=== PATIENT | male | born 1950 | race Caucasian/White ===

== ENCOUNTER 2019-12-22 09:06 | Outpatient (RCR) | payer OTHER, SELFPAY ==
--- NOTE | 2019-12-22 10:10 | PTOPEVAL ---
Thank you for referring this patient to [facility]. Please review, sign, date and return this plan of care SONY. I agree with and certify that the following plan of care is medically necessary. Referring Physician Date Admitting Provider: Attending Provider: PHYSICIAN NOT ON STAFF Referring Provider: *PT Outpatient Evaluation Start: 12/22/19 09:07 Freq: Status: Active Protocol: Document 12/22/19 09:07 [facility]ARRIS (Rec: 12/22/19 09:48 HARRIS [email or web address]) Therapy Assessment Status Assessment Status Assessment Status Evaluation Evaluation Information Problem Diagnosis left pilon fracture Onset 10/11/19 Subjective Information Pt. reports that he fx his Query Text:As Reported By Patient/ right foot/ankle on 10/11/19 Family after falling from about 5' in the air. He was immediately taken to [facility] and underwent surgery that day. He was NWB until 12/11/19, which is when he was allowed to partial weight bear. He has been doing light walking. He reports his most recent doctors visit he was informed to WB as tolerated. He reports that he has been attempting light walking. He reports that his goal is to return to walking normally. Prior Level of Function Activity Level (Last 3 Months) Hand Dominance Right Activity of Daily Living Ability Independent Indoor/Home Mobility Independent Community Mobility Independent Stairs Ability Independent Functional Cognition (Planning, Shopping Independent , Taking Medications) Cooking Yes Cleaning Yes Laundry Yes Shopping Yes Driving Yes Pain Assessment Timing of Pain Assessment Timing of Pain Assessment Pre-Treatment Pain Scale Pain Scale Used Numeric (1 - 10) Self Report Pain Assessment Left Ankle(s) Reported Pain Level 0 Pain Frequency Intermittent Current Pain Intensity 0 Lowest Pain Intensity 0 Greatest Pain Intensity 2 Pain Aggravating Factors Walking,Weight Bearing/ Standing Pain Relief Interventions Used By Inactivity/Rest Patient Pain Score Pain Score
== END 2020-01-30 09:32 | disposition home or self-care (01) ==
LOC: CHSPT 09:06
PROVIDERS: PCP Family Medicine
DX: S82.872A Displaced pilon fracture of left tibia, initial encounter for closed fracture (principal)
CPT/HCPCS: 97016; 97110; 97140; 97161; 97530

== ENCOUNTER 2020-05-17 14:40 | Outpatient (RCR) | payer OTHER, SELFPAY ==
[2020-05-17 15:00] VITALS: BP 124/50; PULSE 61; PULSE 63; RESP 16; O2SAT 97; BMI 29.8
[2020-05-17 15:02] VITALS: BP 123/70; PULSE 67
== END 2020-08-11 14:51 | disposition home or self-care (01) ==
PROVIDERS: PCP Family Medicine; Visit Provider Specialist
DX: Z98.62 Peripheral vascular angioplasty status (principal)
CPT/HCPCS: 93798

== ENCOUNTER 2020-06-11 10:39 | Outpatient (CLI) | payer OTHER, SELFPAY ==
--- NOTE | ~2020-06-11 | XR_ITS ---
XR elbow LT 2V DATE: 06/11/2020 11:08 INDICATION: Left elbow pain TECHNIQUE: AP and lateral views . COMPARISON: None FINDINGS: There is mild spurring of the coronoid process of the proximal ulna. Minimal posterior spurring of the olecranon process, with adjacent small calcification or bony densit y. No fracture or dislocation or joint effusion. No periosteal reaction or bone destruction. IMPRESSION: Coronoid and olecranon process mild spurring Reviewed, dictated and finalized at location A.
== END 2020-06-11 10:40 | disposition home or self-care (01) ==
PROVIDERS: PCP Family Medicine; Visit Provider Family Medicine
DX: M25.422 Effusion, left elbow (principal)
CPT/HCPCS: 73070

== ENCOUNTER 2020-06-21 10:30 | Outpatient (CLI) | payer OTHER, SELFPAY ==
--- NOTE | ~2020-06-21 | US_ITS ---
EXAMINATION: US soft tissue UE LT DATE: 06/21/2020 11:15 INDICATION: Palpable area at the ulnar side of the proximal left forearm. TECHNIQUE: Multiple grayscale and Doppler ultrasound images of the abdomen were obtained. COMPARISON: None FINDINGS: At the region of concern there is a complex 4.2 x 3.6 x 0.6 cm loculated fluid collection with internal medicine physician assistant al isoechoic nodular soft tissue and thickened septations along which there is readily evident internal medicine physician assistant al vascular flow on color Doppler. IMPRESSION: 1. 4.2 x 3.6 x 0.6 cm complex cystic collection with solid vascular soft tissue components at the uln ar side of the proximal left forearm. Differential would include abscess, bursitis or neoplasm which could be either benign or malignant. Correlate clinically for signs/symptoms of inflammation and coul d consider ultrasound-guided aspiration/biopsy as clinically indicated. Reviewed, dictated and finalized at location A. IMPRESSION: 1. 4.2 x 3.6 x 0.6 cm complex cystic collection with solid vascular soft tissue components at the ulnar side of the proximal left forearm. Differential would include abscess, bursitis or neoplasm which could be either benign or malignant . Correlate clinically for signs/symptoms of inflammation and could consider ul trasound-guided aspiration/biopsy as clinically indicated.
== END 2020-06-21 10:31 | disposition home or self-care (01) ==
LOC: CHSLAB 10:33
PROVIDERS: PCP Family Medicine; Visit Provider Family Medicine
DX: R22.32 Localized swelling, mass and lump, left upper limb (principal)
CPT/HCPCS: 76882

== ENCOUNTER 2020-06-30 13:20 | Outpatient (CLI) | payer OTHER, SELFPAY ==
--- NOTE | ~2020-06-30 | US_ITS ---
EXAMINATION: US_ABSCYSTIMG_US DATE: 06/30/2020 14:29 INDICATION: Left forearm mass TECHNIQUE: The procedure and its risks and benefits were discussed with the patient. Potential risks discussed included bleeding and infection. The skin was prepped and draped in sterile fashion. 1% lid ocaine was used for local anesthesia. Under ultrasound guidance, a 21-gauge needle was advanced into the anechoic portion of the complex fluid collection. 4 mm of dark red-colored fluid was aspirated. T he needle was removed, and a dressing was applied. There were no immediate complications. FINDINGS: Ultrasound images demonstrate needle within the previous noted complex fluid collection at the ulnar side of the proximal left forearm. IMPRESSION: 1. Successful ultrasound-guided paracentesis yielding 4 mL of dark maroon-colored fluid ingesting a chronic hematoma. Patient provided additional clinical information that the mass developed following injury with bruising and at the patient has been anticoagulated for cardiac stent placement. Both the ultrasound appearance, the provided clinical history as well as appearance of the aspirated fluid ar e all most consistent with a hematoma. Aspirated fluid was sent for cytology, Gram stain and cultures and crystal analysis. Reviewed, dictated and finalized at location A. IMPRESSION: 1. Successful ultrasound-guided paracentesis yielding 4 mL of dark maroon-colo red fluid ingesting a chronic hematoma. Patient provided additional clinical in formation that the mass developed following injury with bruising and at the pat ient has been anticoagulated for cardiac stent placement. Both the ultrasound a ppearance, the provided clinical history as well as appearance of the aspirated fluid are all most consistent with a hematoma. Aspirated fluid was sent for cy tology, Gram stain and cultures and crystal analysis.
[2020-06-30 15:26] LABS: Crystals Synovial Fluid None Seen (None Seen)
== END 2020-06-30 13:21 | disposition home or self-care (01) ==
PROVIDERS: Radiology Diagnostic Radiology; PCP Family Medicine
DX: R22.32 Localized swelling, mass and lump, left upper limb (principal)
CPT/HCPCS: 10160; 76942; 87070; 87075; 87205; 88104; 88108; 88184; 88305; 89060

== ENCOUNTER 2021-05-13 07:48 | Outpatient (RCR) | payer OTHER, SELFPAY ==
--- NOTE | 2021-05-13 13:17 | PTOPEVAL ---
Thank you for referring Diogenes Mcelroy to [facility].? The patient is scheduled to be seen for therapy? ____x/week for ___ weeks. Please review, sign, date and return this plan of care SONY. I agree with and certify that the following plan of care is medically necessary. Referring Physician Date Admitting Provider: Attending Provider: ALINE GONZALES Referring Provider: HARSHAD Outpatient Evaluation Start: 05/13/21 08:02 Freq: Status: Active Protocol: Document 05/13/21 08:00 [facility] (Rec: 05/13/21 09:55 [facility] [id number]) Evaluation Information Problem Diagnosis L total ankle replacement Onset 05/12/21 Subjective Information Diogenes Mcelroy is a 70 year Query Text:As Reported By Patient/ old male who had a L TAR on . Patient reports that he has peripheral neuropathy in bilateral feet. He reports numbness in both feet but no pain. He report no falls in past year. He experienced a traumatic medial fracture last year. Prior Level of Function Comments Additional Prior Level of Function go for walks, perform yard Comments work and house hold tasks Pain Assessment Timing of Pain Assessment Timing of Pain Assessment Pre-Treatment Pain Scale Pain Scale Used Numeric (1 - 10) Self Report Pain Assessment Left Ankle(s) Reported Pain Level 0 Lowest Pain Intensity 0 Greatest Pain Intensity 2 Pain Score Pain Score 0: Self Report Interventions Used Interventions Used By Clinicians Activity or ADL's,Education, Exercise Lower Extremity Range of Motion Ankle/Foot Range of Motion Right Ankle Dorsiflexion With Knee Extension 10 Range of Motion - Active Ankle Dorsiflexion With Knee Extension 15 Range of Motion - Passive Ankle Dorsiflexion With Knee Flexed 10 Range of Motion - Active Ankle Dorsiflexion With Knee Flexed 15 Range of Motion - Passive Ankle Plantarflexion Range of Motion - 43 Active Query Text: Ankle Plantarflexion Range of Motion - 45 Passive Ankle Eversion Range of Motion - Active 20 Ankle Inversion Range of Motion - Active 10 Left Ankle Dorsiflexion With Knee Extension -3 Range of Motion - Active Ankle Dorsiflexion With Knee Extension 0 Range of Motion - Passive Ankle Dorsiflexion With Knee Flexed 3 Range of Motion - Active Ankle Dorsiflexion With Knee Flexed 5 Range of Motion - Passive Ankle Plantarflexion Range of Mc
--- NOTE | 2021-06-20 09:51 | PTOPEVAL ---
Thank you for referring Diogenes Mcelroy to [facility].? The patient is scheduled to be seen for therapy? ____x/week for ___ weeks. Please review, sign, date and return this plan of care SONY. I agree with and certify that the following plan of care is medically necessary. 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 He states that he is able to do anything that he needs to do and occasionally has some tightness by the end of the day. Pain Assessment Timing of Pain Assessment Timing of Pain Assessment Assessment Pain Scale Pain Scale Used Numeric (1 - 10) Self Report Pain Assessment Left Ankle(s) Reported Pain Level 0 Greatest Pain Intensity 3 Pain Score Pain Score 0: Self Report Interventions Used Interventions Used By Clinicians Activity or ADL's,Exercise Lower Extremity Range of Motion Ankle/Foot Range of Motion Left Ankle Dorsiflexion With Knee Extension 5 Range of Motion - Active Ankle Plantarflexion Range of Motion - 21 Active Query Text: Ankle Eversion Range of Motion - Active 20 Ankle Inversion Range of Motion - Active 20 Lower Extremity Muscle Strength Testing Ankle Strength Left Ankle Dorsiflexion Strength 5 Normal Ankle Plantarflexion Strength 5 Normal Ankle Eversion Strength 5 Normal Ankle Inversion Strength 5 Normal Extremity Circumference Assessment Circumference Assessment Circumference Comments Malleolar line: L- 29.5 cm R- 27 cm General Exercise General Exercises Exercise Description - reeval x 10 minutes Query Text:Record Sets, Reps, - box lifts with 27.5 # x 10 Resistance, and Position - tall kneeling to half kneeling to standing with no UE support x 5 - nustep 10 minutes level 6 - slantboard 3 minutes - heel and toe raises x20 each
== END 2021-06-20 10:20 | disposition home or self-care (01) ==
LOC: CHSPT 07:48
PROVIDERS: PCP Family Medicine
DX: M19.072 Primary osteoarthritis, left ankle and foot (principal)
CPT/HCPCS: 97016; 97110; 97161; 97530

== ENCOUNTER 2022-05-03 07:12 | Outpatient (CLI) | payer OTHER, SELFPAY ==
--- NOTE | ~2022-05-03 | US_ITS ---
EXAMINATION: US right upper quadrant DATE: 05/03/2022 08:27 INDICATION: Elevated bilirubin TECHNIQUE: Multiple grayscale and Doppler ultrasound images of the abdomen were obtained. COMPARISON: None available FINDINGS: The head and body of the pancreas are normal. The pancreatic tail is obscured by bowel gas. The liver is normal with normal echogenicity and echotexture. No surface nodularity. Normal hepatope rama flow in the main portal vein. The gallbladder is normal with no abnormal wall thickening, pericho lecystic fluid or stones. The normal common bile duct measures 4 mm. There was no sonographic Edwards sign. IMPRESSION: 1. No sonographic correlate for the patient's symptoms. Reviewed, dictated and finalized at location A.
== END 2022-05-03 07:13 | disposition home or self-care (01) ==
LOC: CHSIMG 07:13
PROVIDERS: PCP Family Medicine; Visit Provider Family Medicine
DX: R17 Unspecified jaundice (principal)
CPT/HCPCS: 76705

== ENCOUNTER 2024-11-20 14:13 | Outpatient (CLI) | payer MEDICARE, SELFPAY ==
[2024-11-20 15:03] LABS: INR 1.1; Prothrombin Time 12.4 Seconds (9.50-12.1)
[2024-11-20 15:32] LABS: Alanine Aminotransferase 35 U/L (16-63); Albumin Level 4.1 g/dL (3.4-5.0); Alkaline Phosphatase 73 U/L (46-116); Aspartate Amino Transferase 21 U/L (15-37); Bilirubin Direct 0.3 mg/dL (0-0.2); Bilirubin Indirect 1.8 mg/dL (0-1.0); Bilirubin,Total 2.1 mg/dL (0.00-1.00); Ferritin 90 ng/mL (26-388); Iron 78 ug/dL (65-175); Percent Iron Saturation 27 % (12-57); Total Protein 6.5 g/dL (6.4-8.2)
[2024-11-21 08:58] LABS: Hepatitis A Antibody IgM NON-REACTIVE (NON-REACTIVE); Hepatitis B Core Antibody NON-REACTIVE (NON-REACTIVE); Hepatitis B Surface Antigen NON-REACTIVE (NON-REACTIVE); Hepatitis C Virus Antibody NON-REACTIVE (NON-REACTIVE)
[2024-11-22 07:05] LABS: Alpha-1-Antitrypsin, QN 136 mg/dL (83-199); Ceruloplasmin 20 mg/dL (14-30); Immunoglobulin G 1111 mg/dL (600-1540)
== END 2024-11-20 14:14 | disposition home or self-care (01) ==
LOC: CHSLAB 14:14
PROVIDERS: PCP Family Medicine; Visit Provider Nurse Practitioner
DX: K74.60 Unspecified cirrhosis of liver (principal); E80.6 Other disorders of bilirubin metabolism
CPT/HCPCS: 36415; 80074; 80076; 82103; 82390; 82728; 82784; 83516; 83520; 83540; 83550; 85610; 86038; 86376

== ENCOUNTER 2025-01-11 09:31 | Outpatient (CLI) | payer MEDICARE, SELFPAY ==
--- NOTE | ~2025-01-11 | MR_ITS ---
MRI of the abdomen: Clinical indication: Left renal mass. Technique: Coronal SSFSE ARC, WATER:coronal LAVA-FLEX, Coronal 2D FIESTA FatSat, Axial SSFSE BH ARC, Axial 3D DualEcho BH, Axial SSFSE-IR, Axial DWI b=500, Axial 2D FIESTA FatSat, pre and dynamic postco ntrast Axial LAVA ARC, postcontrast Coronal In and Opposed phase LAVA FLEX. Following intravenous adm inistration of 20 cc ProHance gadolinium, T1-weighted fat-sat imaging was performed in the axial and coronal planes. Correlation made with CT scan dated 11/24/2024 Findings: Gallbladder unremarkable. The common bile duct is normal in course and caliber. No filling defects are seen within the CBD. No evidence of intrahepatic biliary ductal dilatation. The pancreati c duct is normal in size. There is a mildly complex left renal cyst measuring 3.6 cm in diameter, with crescentic peripheral ar ea which is T1 hyperintense and T2 hypointense, without apparent postcontrast enhancement. This is mo st compatible with a hemorrhagic cyst. Multiple additional bilateral simple renal cysts are present. No suspicious renal mass identified. Liver, spleen, pancreas, and adrenal glands appear normal. The aorta and the paraaortic regions appea r normal. Impression: 3.6 cm partially hemorrhagic left renal cyst. Additional bilateral simple renal cysts. No suspicious renal mass. Reviewed, dictated and finalized at [facility]. Impression: 3.6 cm partially hemorrhagic left renal cyst. Additional bilateral simple renal cysts. No suspicious renal mass.
--- OUTSIDE RECORDS SUMMARY | 2025-01-11 09:35 | XMS_ITS | Encounter Summary ---
Author Organization [facility] Address [facility] [place] [address] Care Team Providers Care Plate Cleaner Name Role Phone Ayse Vera APRN, NP-C Unavailable [phone] Dylan Miguel MD Unavailable [phone] Mrak Segura MD Primary Care Provider [phone] Faustino Miranda MD Unavailable Unavailabl e Soraya Bahena MD Unavailable [phone] Encounter Details Date Type Department Care Team (Late st Contact Info) Description 12/12/2020 [place] Message Enc [facility] [address] [place] [phone] Faustino Miranda MD Medication Questions Social History Tobacco Use Types Packs/Day Years Used Date Smoking Tobacco: Former Cigarettes Q uit: 2009 Smokeless Tobacco: Former Alcohol Use Standard Drinks/Week Comments No 0 (1 standard drink = 0.6 oz pur e alcohol) AUDIT-C Answer Date Recorded Frequency of Alcohol Consumption Never 10/16/2019 Average Number of Drinks Not on file 019 Frequency of Binge Drinking Not on file 10/05 Sex and Gender Information Value Date Recorded Sex Assigned at Not on file Legal Sex Male 11:21 PM SALES SERVICE PROFESSIONAL Gender Identity Not on file Sexual Orientation Not on file 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 Answer Date of Assessment Author Status No 10/12/2019 12:36 AM SALES SERVICE PROFESSIONAL Acti ve * Do you have serious difficulty walking or climbing stairs? Answer Date of Assessment Author Status No 10/12/2019 12:36 AM SALES SERVICE PROFESSIONAL Hector Camp RN Active * Do you have difficulty dressing or bathing? Answer Date of Assessment Author Status No 10/12/2019 12:36 AM SALES SERVICE PROFESSIONAL Hector Camp RN Active * Because of a physical, mental, or emotional condition, do you have difficulty doing errands alone such as visiting a doctor's office or shopping? Answer Date of Assessment Author Status No 10/12/2019 12:36 AM Hector Santiago RN Active documented as of this encounter Mental Status * Because of a physical, mental, or emotional condition, do you have serious difficulty concentrating, remembering, or making decisions? Answer Entry Date Author Status No 10/12/2019 12:36 AM Hector Santiago RN Active documented in this encounter Progress Notes * Ayse Vera APRN, MIC - 12/13/2020 8:34 AM CST Returned call to Diogenes. Informed him that he may restart Plavix the day following the procedure, provided that the surgeon agrees based on his bleeding risk. I encouraged him to check with the surgeon afterwards. He v/u. S SERVICE PROFESSIONAL documented in this encounter Plan of Treatment Upcoming Encounters Date Type Department Care Team (Late st Contact Info) Description 03/20/2025 10:30 AM CDT Office Visit [facility] el[facility] [address] [place] [address] Ayse Vera APRN, CHIP MACHINE OPERATOR-C [address] [facility] [address] [place] [phone] documented as of this encounter Visit Diagnoses Not on filedocumented in this encounter Care Teams Plate Cleaner Relationship Specialty Start Date End Date Mark Segura MD [address] [place] [address] PCP - General FAMILY PRACTICE 10/22/19 Ayse eVra, SURAJ, CHIP MACHINE OPERATOR-C [address] [place] [address] [address] [place] [phone] NURSE PRACTITIONER 10/17/19 Dylan Migule MD [address] [place] [address] ORTHOPAEDIC SURGERY 10/17/19 Faustino Miranda MD [address] [place] [address] Consulting Physician CARDIOVASCULAR DISEASE 08/16/20 Soraya Bahena MD [address] [place] [address] INTERVENTIONAL CARDIOLOGY 04/04/24 documented as of this encounter
--- OUTSIDE RECORDS SUMMARY | 2025-01-11 09:35 | XMS_ITS | Encounter Summary ---
Author Organization [facility] Address [facility] [place] [address] Care Team Providers Care District Medical Examiner Name Role Phone Ayse Vera APRN, NP-C Unavailable [phone] Dylan Miguel MD Unavailable [phone] Mark Segura MD Primary Care Provider [phone] Faustino Miranda MD Unavailable Unavailabl e Soraya Bahena MD Unavailable [phone] Encounter Details Date Type Department Care Team (Late st Contact Info) Description 04/18/2024 Voltage Security Message Enc [facility] eld [address] [place] [address] Ayse Vera APRN HIGH SCHOOL SOCIAL SCIENCE TEACHERAnhC [address] [facility] [address] [place] [address] Blood test Social History Tobacco Use Types Packs/Day Years [...] on file Legal Sex Male 11:21 PM HEADER OPERATOR Gender Identity Not on file Sexual Orientation Not on file 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 Answer Date of Assessment Author Status No 10/12/2019 12:36 AM HEADER OPERATOR Acti ve * Do you have serious difficulty walking or climbing stairs? Answer Date of Assessment Author Status No 10/12/2019 12:36 AM Hector Santiago RN Active * Do you have difficulty dressing or bathing? Answer Date of Assessment Author Status No 10/12/2019 12:36 AM Hector Santiago RN Active * Because of a physical, [...] Santiago RN Active documented in this encounter Plan of Treatment Upcoming Encounters Date Type Department Care Team (Late st Contact Info) Description 03/20/2025 10:30 AM CDT Office Visit [facility] [address] [place] [phone] Ayse Vera APRN, HIGH SCHOOL SOCIAL SCIENCE TEACHER-C [address] [facility] [address] [place] [address] documented as of this encounter Visit Diagnoses Not on filedocumented in this encounter Care Teams District Medical Examiner Relationship Specialty Start Date End Date Mark Segura MD [address] [place] [address] PCP - General FAMILY PRACTICE 10/22/19 Ayse Vera APRN, HIGH SCHOOL SOCIAL SCIENCE TEACHER-C [address] [facility] [address] [place] [address] NURSE PRACTITIONER 10/17/19 Dylan Miguel MD [address] [place] [address] ORTHOPAEDIC SURGERY 10/17/19 Faustino Miranda MD [address] [place] [address] Consulting Physician CARDIOVASCULAR DISEASE 08/16/20 Soraya Bahena MD [address] [place] [address] INTERVENTIONAL CARDIOLOGY 04/04/24 documented as of this encounter
--- OUTSIDE RECORDS SUMMARY | 2025-01-11 09:35 | XMS_ITS | Clinical Summary ---
Author Organization [facility] Address [address] [place] [address] Care Team Providers Care Life Trainer Name Role Phone Ayse Vera APRN, NP-C Unavailable Dylan Miguel MD Unavailable [phone] Mark Segura MD Primary Care Provider [phone] Faustino Mrianda MD Unavailable Unavailabl Soraya Headley MD Unavailable [phone] Allergies Active Allergy Reactions Criticality Noted Date Comments Oxycodone GI Upset 10/11/2019 Medications lisinopril-hydr ochlorothiazide 20-25 MG tabletIndicatio ns:blood pressure/water pill Take 2 tablets by mouth daily. Indications: blood pressure/water pill 1 9 Active Multiple Vitamins-Minera ls (MULTIVITAMIN ADULTS) TabIndications: supplement Take 1 tablet by mouth daily. Indications: supplement Active GLUCOSAMINE-CHO NDROITIN 4075-7107 MG OR TABSIndications :supplement Take 1 tablet by mouth daily. Indications: supplement Active tamsulosin 0.4 MG Cap Take 1 capsule (0.4 mg total) by mouth daily. Active aspirin EC (ECOTRIN) 81 MG tablet Take 1 tablet (81 mg total) by mouth daily. Active metoprolol succinate ER (TOPROL-XL) 50 MG 24 hr tablet Take 1 tablet (50 mg total) by mouth daily. 90 tablet 3 4 Active apixaban (ELIQUIS) 5 MG tablet Take 1 tablet (5 mg total) by mouth 2 (two) times daily. 180 tablet 3 4 Active rosuvastatin (CRESTOR) 5 MG tablet TAKE 1 TABLET BY MOUTH NIGHTLY AT BEDTIME 90 tablet 4 Active Active Problems Problem Noted Date Diagnosed Date Hyperlipidemia 04/29/2020 Paroxysmal atrial fibrillation (CMS/HCC HHS/HCC) 04/29/2020 S/P coronary artery stent placement 04/21/2020 Hypertension 10/17/2019 Right bundle branch block 10/17/2019 Dislocation of ankle, open 10/11/2019 Coronary artery disease Encounters Date Type Department Care Team Description 10/28/2024 [facility] [address] [place] [address] Abstract, Doc Pre[facility] from Last 3 Months Immunizations Name Administration Dates Next Due Afluria 36 MONTHS+ (Prefilled Syringe IIV4) 06/2019 Tdap (Boostrix) 10/11/2019 Family History Medical History Relation Comments Alzheimers Father COPD Father Coronary artery disease Father Stents Afib Mother Relation Status Comments Brother 1 Alive Brother 2 Alive Father Mother Sister Alive Social History Tobacco Use Types Packs/Day Years Used Date Smoking Tobacco: Former Cigarettes Q uit: 2008 Smokeless Tobacco: Former Alcohol Use Standard Drinks/Week Comments No 0 (1 standard drink = 0.6 oz pur e alcohol) AUDIT-C Answer Date Recorded Frequency of Alcohol Consumption Never 10/16/2019 Average Number of Drinks Not on file 019 Frequency of Binge Drinking Not on file 10/05 Sex and Gender Information Value Date Recorded Sex Assigned at Not on file 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 Gender Identity Not on file Sexual Orientation Not on file 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 Not on file Last Filed Vital Signs Vital Sign Reading Time Taken Comments Blood Pressure 112/70 03/20/2024 11:02 AM CDT Pulse 68 03/20/2024 11:02 AM CDT Temperature 36.1 C (96.9 F) 04/29/2020 2:28 PM CDT Respiratory Rate 16 03/20/2024 11:02 AM CDT Oxygen Saturation 96% 03/20/2024 11:02 AM CDT Inhaled Oxygen Concentration - - Weight 106.1 kg (234 lb) 03/20/2024 11:02 AM CDT Height 180.3 cm (5' 11 ) 03/20/2024 11:02 AM CDT Body Mass Index 32.64 03/20/2024 11:02 AM CDT Plan of Treatment Upcoming Encounters Date Type Department Care Team (Late st Contact Info) Description 03/20/2025 10:30 AM CDT Office Visit [facility]d [address] [place] [address] Ayse Vera, AUTO WINDER, ADULT SPECIALIST-C [address] [facility] [address] [place] [address] Health Maintenance Due Date Last Done Comments Colorectal Cancer Screening Colonoscopy (10 Years) 1950 Pneumococcal Vaccine: 65+ Years (1 of 2 - PCV) 1957 Hepatitis C 1969 RSV Immunization or 60+ Years (1 - Risk 60-74 years 1-dose series) 2011 AAA SCREENING 2016 Annual Medicare Wellness Visit 2016 Zoster Vaccines (2 of 3) 10/26/2017 08/31/2017 COVID-19 Vaccine ( - 2023-2 5 season) 2024 Influenza Adult (#1) 2024 10/12/2019, 12/10/2018 DTaP, Tdap and Td Vaccines ( 2 - Td or Tdap) 10/11/2029 10/11/2019 Meningococcal B Vaccine Aged Out No l onger eligible based on patient's age to complete this topic Meningococcal Vaccine Aged Out No osiris tavia eligible based on patient's age to complete this topic RSV Immunizations Under 20 Months Aged Out No longer eligible b ased on patient's age to complete this topic Medical Devices Implanted Type Area Assistant Head Cashier Device Identifier Shelf Expiration Date Model / Serial / Lot Cv Xience Lakeisha Americo Mid Lad Stent Stent Coronary LAD GUTIERREZ VASCULAR 12/25/2020 [id number] / / [id number] Clamp Synthes Large Pin 4 Position - [id number] Implanted:Qty: 1 on 10/11/2019 by Dion Prado MD at [facility] Left: Ankle SYNTHES 390.009 / / Screw Schanz Synthes 4.0 X 125 - [id number] Implanted:Qty: 1 on 10/11/2019 by Dion Prado MD at [facility] Left: Ankle SYNTHES 294.777 / / Screw Schanz Synthes 5 X 175mm - [id number] Implanted:Qty: 2 on 10/11/2019 by Dion Prado MD at [facility] Left: Ankle SYNTHES 294.785 / / Pin Transfixation Synthes 6.0 X 225mm - [id number] Implanted:Qty: 1 on 10/11/2019 by Dion Prado MD at [facility] Left: Ankle SYNTHES 294.95 / / Clamp Synthes Large Combination - [id number] Implanted:Qty: 6 on 10/11/2019 by Dion Prado MD at [facility] Left: Ankle SYNTHES 390.005 / / Post Synthes 11mm 30 Deg Outrigger Mr Safe - [id number] Implanted:Qty: 2 on 10/11/2019 by Dion Prado MD at [facility] Left: Ankle SYNTHES 390.012 / / Tristan Synthes 11.0 Carbon Fiber 400mm - [id number] Implanted:Qty: 2 on 10/11/2019 by Dion Prado MD at [facility] Left: Ankle SYNTHES 394.87 / / Tristan Synthes 11.0 Carbon Fiber 150mm - [id number] Implanted:Qty: 1 on 10/11/2019 by Dion Prado MD at [facility] Left: Ankle SYNTHES 394.82 / / Tsering 8 Hole Plate Implanted:Qty: 1 on 10/27/2019 by Dylan Miguel MD at [facility] Left: Ankle [employer] 4927-008-03 / / Screw Tsering 2.7 Cortical Self Tapping 30mm - [id number] Implanted:Qty: 1 on 10/27/2019 by Dylan Miguel MD at [facility] Left: Ankle BIOMET INC [id number] / / Screw Tsering 2.7 Cortical Self Tapping 40mm - [id number] Implanted:Qty: 1 on 10/27/2019 by Dylan Miguel MD at [facility] Left: Ankle BIOMET INC [id number] / / Screw Tsering 2.7 Cortical Self Tapping 42mm - [id number] Implanted:Qty: 1 on 10/27/2019 by Dylan Miguel MD at [facility] Left: Ankle BI[employer]ET INC [id number] / / Screw Tsering 2.7 Cortical Self Tapping 44mm - [id number] Implanted:Qty: 1 on 10/27/2019 by Dylan Miguel MD at [facility] Left: Ankle BIOMET INC [id number] / / Screw Tsering 2.7 Cortical Self Tapping 28mm - [id number] Implanted:Qty: 1 on 10/27/2019 by Dlyan Miguel MD at [facility] Left: Ankle BIOMET INC [id number] / / Tsering 1/3 Tubular Plate 10 Hole Implanted:Qty: 1 on 10/27/2019 by Dylan Miguel MD at [facility] Left: Ankle [employer] [id number] / / Screw Cortical Tsering 3.5 X 16mm - [id number] Implanted:Qty: 4 on 10/27/2019 by Dylan Miguel MD at [facility] Left: Ankle BI[employer]ET INC [id number] / / Screw Cortical Tsering 3.5 X 55mm - [id number] Implanted:Qty: 1 on 10/27/2019 by Dylan Miguel MD at [facility] Left: Ankle BI[employer]ET [employer] [id number] / / Tsering 3.5 X 60 Mm Cortical Screw Implanted:Qty: 1 on 10/27/2019 by Dylan Miguel MD at [facility] Left: Ankle [employer] [id number] / / Screw Cortical Tsering 3.5 X 18mm - [id number] Implanted:Qty: 1 on 10/27/2019 by Dylan Miguel MD at [facility] Left: Ankle BIOMET INC [id number] / / Explanted Type Area Assistant Head Cashier Device Identifier Shelf Expiration Date Model / Serial / Lot Drill Bit Synthes 3.5 Qc 195mm - [id number] Explanted:Qty: 1 on 10/11/2019 by Dion Prado MD at [facility] Left: Ankle SYNTHES 310.37 / / Wire Tsering Ankita 1.6mm X 150mm - [id number] Explanted:Qty: 1 on 10/27/2019 by Dylan Miguel MD at [facility] Left: Ankle BIOMET INC [id number] / / Drill Bit Tsering 2.0mm Qc - [id number] Explanted:Qty: 1 on 10/27/2019 by Dylan Miguel MD at [facility] Left: Ankle BIOMET INC [id number] / / Drill Bit Tsering 2.7mm Qc - [id number] Explanted:Qty: 1 on 10/27/2019 by Dylan Miguel MD at [facility] Left: Ankle BIOMET INC [id number] / / Drill Bit Tsering 2.5mm - [id number] Explanted:Qty: 1 on 10/27/2019 by Dylan Miguel MD at [facility] Left: Ankle BIOMET INC [id number] / / Drill Bit Tsering 3.5mm Qc - [id number] Explanted:Qty: 1 on 10/27/2019 by Dylan Miguel MD at [facility] Left: Ankle BIOMET INC [id number] / / Procedures Procedure Name Priority Date/Time Associated Diagnosis Comments CBC (OUTSIDE LAB) Routine 10/20/2024 CMP (ABSTRACTED LAB) Routine 10/20/2024 from Last 3 Months Results * (ABNORMAL) CMP (ABSTRACTED LAB) (10/20/2024) POTASSIUM S/P/B 3.7 CHLORIDE S/P/B 102 CO2 32 BUN 22 CREATININE S/P/B 1.32(A) 0.7 - 1.3 EGFR NON-AFR. AMER. 57 <=90 CALCIUM S/P/B 9.3 GLUCOSE 91 mg/dL TOTAL PROTEIN S/P/B 6.7 ALBUMIN S/P/B 4.3 3.5 - 5.0 AST 24 ALT 23 ALKALINE PHOSPHATASE S/P/B 63 BILIRUBIN TOTAL S/P/B 2.1 10/20/2024 us Default History Genericprovider LAB-OUTSIDE/ABST RACTED Final Result * CBC (OUTSIDE LAB) (10/20/2024) WBC 6.4 HGB 16.7 HCT 50.5 PLT 179 RBC 5.38 10/20/2024 us Default History Genericprovider LAB-OUTSIDE/ABST RACTED Final Result from Last 3 Months Insurance AET[employer] Advance Directives Documents on File Type Date Recorded Patient Skate Hop Expl anation Power of Production Engineer Track 04/09/2020 7:25 AM * Full Code (Latest Code Status on File) Date Activated Date Inactivated Comments 10/12/2019 12:23 AM 10/12/2019 4:40 PM Care Teams Life Trainer Relationship Specialty Start Date End Date Mark Segura MD [address] [place], [place] [phone] PCP - General FAMILY PRACTICE 10/22/19 Ayse Vera APRN, ADULT SPECIALIST-C [address] [facility] [address] [place] [address] NURSE PRACTITIONER 10/17/19 Dylan Miguel MD [address] [place] [address] ORTHOPAEDIC SURGERY 10/17/19 Faustino Miranda MD [address] [place] [address] Consulting Physician CARDIOVASCULAR DISEASE 08/16/20 Soraya Bahena MD [address] [place] [address] INTERVENTIONAL CARDIOLOGY 04/04/24
--- OUTSIDE RECORDS SUMMARY | 2025-01-11 09:35 | XMS_ITS | Encounter Summary ---
Author Organization [facility] Address [facility] [place] [address] Care Team Providers Care Marker Machine Name Role Phone Ayse Vera APRN, NP-C Unavailable [phone] Dylan Miguel MD Unavailable [phone] Mark Segura MD Primary Care Provider [phone] Faustino Miranda MD Unavailable Unavailabl e Soraya Bahena MD Unavailable [phone] Encounter Details Date Type Department Care Team (Late st Contact Info) Description 03/01/2022 LAFASO Message Enc [facility] [address] [place] [address] Ayse Vera APRN, NP-C [address] [facility] [address] [place] [address] irregular heart beat, pulse 93 sitting down Social History Tobacco Use Types Packs/Day Years [...] on file 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 Answer Date of Assessment Author Status No 10/12/2019 12:36 AM ORE ROASTER Acti ve * Do you have serious [...] Description 03/20/2025 10:30 AM CDT Office Visit [facility] eld [address] [place] [address] Ayse Vera, DIRECTOR OF SPEECH PATHOLOGY, MOLD PRESS OPERATOR-C [address] [facility] [address] [place] [address] documented as of this encounter Visit Diagnoses Not on filedocumented in this encounter Care Teams Marker Machine Relationship Specialty Start Date End Date Mark Segura MD [address] [place] [address] PCP - General FAMILY PRACTICE 10/22/19 Ayse Vera APRN, MOLD PRESS OPERATOR-C [address] [facility] [address] [place] [address] NURSE PRACTITIONER 10/17/19 Dylan Miguel MD [address] [place] [address] ORTHOPAEDIC SURGERY 10/17/19 Faustino Miranda MD [address] [place] [address] Consulting Physician CARDIOVASCULAR DISEASE 08/16/20 Soraya Bahena MD [address] [place] [address] INTERVENTIONAL CARDIOLOGY 04/04/24 documented as of this encounter
--- OUTSIDE RECORDS SUMMARY | 2025-01-11 09:35 | XMS_ITS | Encounter Summary ---
Author Organization [facility] Address [facility] [place] [address] Care Team Providers Care Party Plan Salesperson Name Role Phone Ayse Vera APRN, NP-C Unavailable [phone] Dylan Miguel MD Unavailable [phone] Mark Segura MD Primary Care Provider [phone] Faustino Miranda MD Unavailable Unavailabl e Soraya Bahena MD Unavailable [phone] Encounter Details Date Type Department Care Team (Late st Contact Info) Description 02/04/2021 ulike Message Enc [facility] eld [address] [place] [address] Faustino Miranda MD Question Social History Tobacco Use Types Packs/Day Years [...] on file 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 Answer Date of Assessment Author Status No 10/12/2019 12:36 AM CONSTRUCTION CREW MEMBER Acti ve * Do you have serious [...] Description 03/20/2025 10:30 AM CDT Office Visit [facility] el [address] [place] [address] Ayse Vera APRN, AUDIO VISUAL COLLECTIONS COORDINATOR-C [address] [address] documented as of this encounter Visit Diagnoses Not on filedocumented in this encounter Care Teams Party Plan Salesperson Relationship Specialty Start Date End Date Mark Segrua MD [address] [place] [address] PCP - General FAMILY PRACTICE 10/22/19 Ayse Vera APRN, AUDIO VISUAL COLLECTIONS COORDINATOR-C [address] [address] NURSE PRACTITIONER 10/17/19 Dylan Miguel MD [address] [place] [address] ORTHOPAEDIC SURGERY 10/17/19 Faustino Miranda MD [address] [place] [address] Consulting Physician CARDIOVASCULAR DISEASE 08/16/20 Soraya Bahena MD [address] [place] [id number] INTERVENTIONAL CARDIOLOGY 04/04/24 documented as of this encounter
--- OUTSIDE RECORDS SUMMARY | 2025-01-11 09:35 | XMS_ITS | Encounter Summary ---
Author Organization [facility] Address [facility] [place] [address] Care Team Providers Care Industrial Locomotive Operator Name Role Phone Ayse Vera APRN, NP-C Unavailable [phone] Dylan Miguel MD Unavailable [phone] Mark Segura MD Primary Care Provider [phone] Faustino Miranda MD Unavailable Unavailabl e Soraya Bahena MD Unavailable [phone] Encounter Details Date Type Department Care Team (Late st Contact Info) Description 04/08/2024 Abstract [facility] [address] [place] [address] [phone] Abstract, Doc [facility] Social History Tobacco Use Types Packs/Day Years [...] on file 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 Answer Date of Assessment Author Status No 10/12/2019 12:36 AM EVENING ANCHOR Acti ve * Do you have serious [...] Description 03/20/2025 10:30 AM CDT Office Visit [facility] eld [address] [place] [address] Ayse Vera, SIFTING OPERATOR, SALESPERSON FASHION ACCESSORIES-C [address] [facility] [address] [place] [address] documented as of this encounter Procedures Procedure Name Priority Date/Time Associated Diagnosis Comments CMP (ABSTRACTED LAB) Routine 04/07/2024 CBC W/ MANUAL DIFF (OUTSIDE) Routine 04/07/2024 LIPID PROFILE (ABSTRACTED) Routine 04/07/2024 documented in this encounter Results * CBC W/ MANUAL DIFF (OUTSIDE) (04/07/2024) WBC 5.1 RBC 4.91 HGB 15.2 HCT 46.9 MCV 95.5 MCH 31.0 MCHC 32.4 RDW 14.6 PLT 149 MPV 11.4 NEUTROPHILS % 56 LYMPHOCYTES % 24.0 MONOCYTES % 12.9 EOSINOPHILS % 5.7 BASOPHILS % 1.4 ABS. NEUTROPHILS 2,856 ABS. LYMPHOCYTES 1,224 ABS. MONOCYTES 658 ABS. EOSINOPHILS 291 ABS. BASOPHILS 71 04/07/2024 us Default History Genericprovider LABORATORY Final Result * (ABNORMAL) CMP (ABSTRACTED LAB) (04/07/2024) SODIUM S/P/B 140 POTASSIUM S/P/B 3.6 CHLORIDE S/P/B 102 CO2 30 BUN 24 CREATININE S/P/B 1.50(A) 0.7 - 1.3 EGFR NON-AFR. AMER. 49 <=90 CALCIUM S/P/B 9.4 GLUCOSE 103 mg/dL TOTAL PROTEIN S/P/B 6.7 ALBUMIN S/P/B 4.3 3.5 - 5.0 AST 25 ALT 25 ALKALINE PHOSPHATASE S/P/B 58 BILIRUBIN TOTAL S/P/B 1.7 04/07/2024 us Default History Genericprovider LAB-OUTSIDE/ABST RACTED Final Result * LIPID PROFILE (ABSTRACTED) (04/07/2024) CHOLESTEROL 86 TRIGLYCERIDES 65 HDL 45 LDL (CALCULATED) 27 04/07/2024 us Default History Genericprovider LAB-OUTSIDE/ABST RACTED Final Result documented in this encounter Visit Diagnoses Not on filedocumented in this encounter Care Teams Industrial Locomotive Operator Relationship Specialty Start Date End Date Mark Segura MD [address] [place] [address] PCP - General FAMILY PRACTICE 10/22/19 Ayse Vera, SIFTING OPERATOR, SALESPERSON FASHION ACCESSORIES-C [address] [facility] [address] [place] [address] NURSE PRACTITIONER 10/17/19 Dylan Miguel MD [address] [place] [address] ORTHOPAEDIC SURGERY 10/17/19 Faustino Miranda MD [address] [place] [address] Consulting Physician CARDIOVASCULAR DISEASE 08/16/20 Soraya Bahena MD [address] [place] [address] INTERVENTIONAL CARDIOLOGY 04/04/24 documented as of this encounter
--- OUTSIDE RECORDS SUMMARY | 2025-01-11 09:35 | XMS_ITS | Encounter Summary ---
Author Organization [facility] Address [facility] [place] [address] Care Team Providers Care Dairy Products Maker Name Role Phone Ayse Vera APRN, NP-C Unavailable [phone] Dylan Miguel MD Unavailable [phone] Mark Segura MD Primary Care Provider [phone] Faustino Miranda MD Unavailable Unavailabl e Soraya Bahena MD Unavailable [phone] Encounter Details Date Type Department Care Team (Late st Contact Info) Description 10/06/2021 [employer] Message Enc [place] [facility] [address] [place] [address] Ayse Vera APRN, NP-C [address] [facility] [address] [place] [address] RE: Follow Up/Update Social History Tobacco Use Types Packs/Day Years [...] on file Legal Sex Male 11: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 Answer Date of Assessment Author Status No 10/12/2019 12:36 AM MITER SAWYER Acti ve * Do you have serious [...] Description 03/20/2025 10:30 AM CDT Office Visit [place] [facility] eld [address] [place] [address] Ayse Vera APRN, SENIOR DENTIST-C [address] [facility] [address] [place] [address] documented as of this encounter Visit Diagnoses Not on filedocumented in this encounter Care Teams Dairy Products Maker Relationship Specialty Start Date End Date Mark Segura MD [address] [place] [address] PCP - General FAMILY PRACTICE 10/22/19 Ayse Vera APRN, SENIOR DENTIST-C [address] [facility] [address] [place] [address] NURSE PRACTITIONER 10/17/19 Dylan Miguel MD [address] [place] [address] ORTHOPAEDIC SURGERY 10/17/19 Faustino Miranda MD [address] [place] [address] Consulting Physician CARDIOVASCULAR DISEASE 08/16/20 Soraya Bahena MD [address] [place] [address] INTERVENTIONAL CARDIOLOGY 04/04/24 documented as of this encounter
--- OUTSIDE RECORDS SUMMARY | 2025-01-11 09:35 | XMS_ITS | Encounter Summary ---
Author Organization [facility] Address [facility] [place] [address] Care Team Providers Care Sales And Service Agent Name Role Phone Faustino Stevens MD Primary Care Provider [phone] Ayse Vera APRN, HEAD ATHLETIC TRAINER-C Unavailable Dylan Miguel MD Unavailable [phone] Mark Segura MD Primary Care Provider [phone] Faustino Miranda MD Unavailable Unavailabl Soraya Headley MD Unavailable [phone] Encounter Details Date Type Department Care Team (Late st Contact Info) Description 04/12/2019 Abstract [facility] [address] [address] , Generic Conversion, Social History Tobacco Use Types Packs/Day Years Used Date Smoking Tobacco: Never Assessed Sex and Gender Information Value Date Recorded Sex Assigned at Not on file Legal Sex Male 11:21 PM 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 DELIVERY ANALYST Gender Identity Not on file Sexual Orientation Not on file documented as of this encounter Plan of Treatment Upcoming Encounters Date Type Department Care Team (Late st Contact Info) Description 03/20/2025 10:30 AM CDT Office Visit [facility] [address] [place] [address] Ayse Vera APRN, HEAD ATHLETIC TRAINER-C [address] [facility] [address] [place] [address] documented as of this encounter Visit Diagnoses Not on filedocumented in this encounter Additional Health Concerns Infection Onset Date Last Indicated Resolved Time COVID-19 Rule Out 04/19/2020 04/19/2020 04/20/2020 10:39 PM CDT documented as of this encounter Care Teams Sales And Service Agent Relationship Specialty Start [place] [address] [place] [address] PCP - General FAMILY PRACTICE 10/11/19 10/21/19 Mark Segura MD [address] [place] [address] PCP - General FAMILY PRACTICE 10/22/19 Ayse Vera, BEATER ENGINEER HELPER, HEAD ATHLETIC TRAINER-C [address] [place] [phone] NURSE PRACTITIONER 10/17/19 Dylan Miguel MD [address] [place] [address] ORTHOPAEDIC SURGERY 10/17/19 Faustino Miranda MD [address] [place] [address] Consulting Physician CARDIOVASCULAR DISEASE 08/16/20 Soraya Bahena MD [address] [place] [address] INTERVENTIONAL CARDIOLOGY 04/04/24 documented as of this encounter
--- OUTSIDE RECORDS SUMMARY | 2025-01-11 09:35 | XMS_ITS | Encounter Summary ---
Author Organization [facility] Address [facility] [place] [address] Care Team Providers Care Keg Raiser Name Role Phone Ayse Vera APRN, NP-C Unavailable [phone] Dylan Miguel MD Unavailable [phone] Mark Segura MD Primary Care Provider [phone] Faustino Miranda MD Unavailable Unavailabl e Soraya Bahena MD Unavailable [phone] Encounter Details Date Type Department Care Team (Late st Contact Info) Description 08/28/2023 GoPlaceIt Message Enc [place] [facility] [address] [place] [address] Ayse Vera APRN, NP-C [address] [facility] [address] [place] [address] Question from Des Mcelroy's Social History Tobacco Use Types Packs/Day Years [...] on file Legal Sex Male 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 Answer Date of Assessment Author Status No 10/12/2019 12:36 AM TURNER AND FORMER AUTOMATIC Acti ve * Do you have serious [...] Description 03/20/2025 10:30 AM CDT Office Visit [place] [facility] eld [address] [place] [address] Ayse Vera, PANTOGRAPH II ENGRAVER, PORCELAIN ENAMEL REPAIRER-C [address] [facility] [address] [place] [address] documented as of this encounter Visit Diagnoses Not on filedocumented in this encounter Care Teams Keg Raiser Relationship Specialty Start Date End Date Mark Segura MD [address] [place] [address] PCP - General FAMILY PRACTICE 10/22/19 Ayse Vera APRN, PORCELAIN ENAMEL REPAIRER-C [address] [facility] [address] [place] [address] NURSE PRACTITIONER 10/17/19 Dylan Miguel MD [address] [place] [address] ORTHOPAEDIC SURGERY 10/17/19 Faustino Miranda MD [address] [place] [address] Consulting Physician CARDIOVASCULAR DISEASE 08/16/20 Soraya Bahena MD [address] [place] [address] INTERVENTIONAL CARDIOLOGY 04/04/24 documented as of this encounter
--- OUTSIDE RECORDS SUMMARY | 2025-01-11 09:35 | XMS_ITS | Encounter Summary ---
Author Organization [facility] Address [facility] [place] [address] Care Team Providers Care Chief Digital Officer Name Role Phone Ayse Vera APRN, NP-C Unavailable [phone] Dylan Miguel MD Unavailable [phone] Mark Segura MD Primary Care Provider [phone] Faustino Miranda MD Unavailable Unavailabl e Soraya Bahena MD Unavailable [phone] Encounter Details Date Type Department Care Team (Late st Contact Info) Description 03/10/2021 Prismatic Message Enc [place] [facility] ield [address] [place] [address] Ayse Vera APRN ASSAYER HELPER-C [address] 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 Answer Date of Assessment Author Status No 10/12/2019 12:36 AM DEBURRING MACHINE OPERATOR Acti ve * Do you have [...] Description 03/20/2025 10:30 AM CDT [facility] [address] [place] [address] Ayse Vera, PNEUMATIC TUBE OPERATOR, ASSAYER HELPER-C [address] [facility] [address] [place] [address] documented as of this encounter Visit Diagnoses Not on filedocumented in this encounter Care Teams Chief Digital Officer Relationship Specialty Start Date End Date Mark Segura MD [address] [place] [address] PCP - General FAMILY PRACTICE 10/22/19 Ayse Vera APRN, ASSAYER HELPER-C [address] [facility] [address] [place] [address] NURSE PRACTITIONER 10/17/19 Dylan Miguel MD [address] [place] [address] ORTHOPAEDIC SURGERY 10/17/19 Faustino Miranda MD [address] [place] [address] Consulting Physician CARDIOVASCULAR DISEASE 08/16/20 Soraya Bahena MD [address] [place] [address] INTERVENTIONAL CARDIOLOGY 04/04/24 documented as of this encounter
--- OUTSIDE RECORDS SUMMARY | 2025-01-11 09:35 | XMS_ITS | Encounter Summary ---
Author Organization [facility] Address [facility] [place] [address] Care Team Providers Care Public Stenographer Name Role Phone Ayse Vera APRN, NP-C Unavailable [phone] Dylan Miguel MD Unavailable [phone] Mark Segura MD Primary Care Provider [phone] Faustino Miranda MD Unavailable Unavailabl e Soraya Bahena MD Unavailable [phone] Encounter Details Date Type Department Care Team (Late st Contact Info) Description 04/12/2023 [facility] [address] [place] [address] Faustino Miranda MD Social History Tobacco Use Types Packs/Day Years [...] on file 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 No / Unsure 03/22/2023 10:15 AM CDT documented as of this encounter Functional Status * RETIRED Are you deaf or do you have serious difficulty hearing Answer Date of Assessment Author Status No 10/27/2019 11:22 AM TRAVELING SALES REPRESENTATIVE Acti ve * RETIRED Are you blind or do you have serious difficulty seeing, even when wearing glasses? Answer Date of Assessment Author Status No 10/12/2019 12:36 AM TRAVELING SALES REPRESENTATIVE Acti ve * Do you have serious [...] Description 03/20/2025 10:30 AM CDT [facility] [address] [place] [address] Ayse Vera, DIRECTOR OF HOME CARE HOSPICE, TRAINING INSTRUCTOR-C [address] [facility] [address] [place] [address] documented as of this encounter Procedures Procedure Name Priority Date/Time Associated Diagnosis Comments CMP (ABSTRACTED LAB) Routine 04/05/2023 TSH (OUTSIDE LAB) Routine 04/05/2023 CBC (OUTSIDE LAB) Routine 04/05/2023 ALBUMIN URINE RANDOM W/CREATININE Routine 04/05/2023 LIPID PANEL Routine 04/05/2023 PSA, TOTAL AND FREE Routine 04/05/2023 documented in this encounter Results * ALBUMIN URINE RANDOM (04/05/2023) CREATININE RANDOM (U) 133 20 - 230 MICROALB/CREAT 8 <30 ALBUMIN (U) 1.0 URINE SPECIMEN / Unknown 04/05/2023 us Default History Genericprovider URINE ORDERABLES Final Result * PSA, TOTAL AND FREE (04/05/2023) Pathologist [facility] PSA TOTAL 2.66 < or = 4.00 04/05/2023 us Default History Genericprovider LABORATORY Final Result * CBC (OUTSIDE LAB) (04/05/2023) WBC 6.2 3.8 - 10.8 HGB 15.9 13.2 - 17.1 HCT 48.1 38.5 - 50.0 PLT 167 140 - 400 RBC 5.26 4.20 - 5.80 MCV 91.4 80.0 - 100.0 MCH 30.2 27.0 - 33.0 MCHC 33.1 32.0 - 36.0 RDW 14.3 11.0 - 15.0 MPV 11.8 7.5 - 12.5 ABS. NEUTROPHILS 4,266 1,500 - 7,800 ABS. LYMPHOCYTES 955 850 - 3,900 ABS. MONOCYTES 719 200 - 950 ABS. EOSINOPHILS 211 15 - 500 ABS. BASOPHILS 50 0 - 200 NEUTROPHILS % 68.8 LYMPHOCYTES % 15.4 MONOCYTES % 11.6 EOSINOPHILS % 3.4 04/05/2023 us Default History Genericprovider LAB-OUTSIDE/ABST RACTED Final Result * TSH (OUTSIDE LAB) (04/05/2023) TSH 1.78 0.40 - 4.50 04/05/2023 us Default History Genericprovider LAB-OUTSIDE/ABST RACTED Final Result * CMP (ABSTRACTED LAB) (04/05/2023) SODIUM S/P/B 141 135 - 146 POTASSIUM S/P/B 3.8 3.5 - 5.3 CHLORIDE S/P/B 103 98 - 110 CO2 27 20 - 32 BUN 24 7 - 25 CREATININE S/P/B 1.26 0.7 - 1.28 EGFR NON-AFR. AMER. 61 <=90 CALCIUM S/P/B 9.3 8.6 - 10.3 GLUCOSE 91 65 - 99 mg/dL TOTAL PROTEIN S/P/B 6.7 6.1 - 8.1 ALBUMIN S/P/B 4.2 3.6 - 5.1 AST 29 10 - 35 ALT 27 9 - 46 ALKALINE PHOSPHATASE S/P/B 57 35 - 144 BILIRUBIN TOTAL S/P/B 1.7 0.2 - 1.2 04/05/2023 us Default History Genericprovider LAB-OUTSIDE/ABST RACTED Final Result * LIPID PANEL (04/05/2023) CHOLESTEROL 81 <200 HDL 38 >or=40 TRIGLYCERIDES 75 <150 NON HDL CHOLESTEROL 43 <130 CHOL/HDL RATIO 2.1 <5.0 LDL (CALCULATED) 27 04/05/2023 us Default History Genericprovider LABORATORY Final Result documented in this encounter Visit Diagnoses Not on filedocumented in this encounter Care Teams Public Stenographer Relationship Specialty Start Date End Date Mark Segura MD [address] [place], [place] [id number] PCP - General FAMILY PRACTICE 10/22/19 Ayse Vera APRN, TRAINING INSTRUCTOR-C [address] [facility] [address] [place] [address] NURSE PRACTITIONER 10/17/19 Dylan Miguel MD [address] [place] [address] ORTHOPAEDIC SURGERY 10/17/19 Faustino Miranda MD [address] [place] [address] Consulting Physician CARDIOVASCULAR DISEASE 08/16/20 Soraya Bahena MD [address] [place] [address] INTERVENTIONAL CARDIOLOGY 04/04/24 documented as of this encounter
--- OUTSIDE RECORDS SUMMARY | 2025-01-11 09:36 | XMS_ITS | Encounter Summary ---
Author Organization [facility] Address [facility] [place] [address] Care Team Providers Care Res Counselor Name Role Phone Ayse Vera APRN, NP-C Unavailable [phone] Dylan Miguel MD Unavailable [phone] Mark Segura MD Primary Care Provider [phone] Faustino Miranda MD Unavailable Unavailabl e Soraya Bahena MD Unavailable [phone] Encounter Details Date Type Department Care Team (Late st Contact Info) Description 04/23/2022 Pigafe Message Enc [place] [facility] eld [address] [place] [address] Ayse Vera APRN LINSEED CAKE TRIMMERAnhC [address] 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 Answer Date of Assessment Author Status No 10/12/2019 12:36 AM RUG SETTER VELVET Acti ve * Do you have serious [...] Description 03/20/2025 10:30 AM CDT [facility] [address] [place] [address] Ayse Vera, DIRECTOR OF PERIOPERATIVE SERVICES, LINSEED CAKE TRIMMER-C [address] [facility] [address] [place] [address] documented as of this encounter Visit Diagnoses Not on filedocumented in this encounter Care Teams Res Counselor Relationship Specialty Start Date End Date Mark Segura MD [address] [place] [address] PCP - General FAMILY PRACTICE 10/22/19 Ayse Vera APRN, LINSEED CAKE TRIMMER-C [address] [facility] [address] [place] [address] NURSE PRACTITIONER 10/17/19 Dylan Miguel MD [address] [place] [address] ORTHOPAEDIC SURGERY 10/17/19 Faustino Miranda MD [address] [place] [address] Consulting Physician CARDIOVASCULAR DISEASE 08/16/20 Soraya Bahena MD [address] [place] [address] INTERVENTIONAL CARDIOLOGY 04/04/24 documented as of this encounter
--- OUTSIDE RECORDS SUMMARY | 2025-01-11 09:36 | XMS_ITS | Encounter Summary ---
Author Organization [facility] Address [facility] [place] [address] Care Team Providers Care Sales Account Leader Name Role Phone Ayse Vera APRN, NP-C Unavailable [phone] Dylan Miguel MD Unavailable [phone] Mark Segura MD Primary Care Provider [phone] Faustino Miranda MD Unavailable Unavailabl e Soraya Bahena MD Unavailable [phone] Encounter Details Date Type Department Care Team (Late st Contact Info) Description 03/01/2022 Phokki Message Enc [place] [facility] [address] [place] [address] Ayse Vera APRN, NP-C [address] [facility] [address] [place] [address] irregular heart beat this morning Social History Tobacco Use Types Packs/Day Years [...] on file 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 Answer Date of Assessment Author Status No 10/12/2019 12:36 AM GAUGE MAKER Acti ve * Do you have serious [...] Description 03/20/2025 10:30 AM CDT [facility] [address] [place] [address] Ayse Vera, COPY AND PRINT ASSOCIATE, SENIOR STORAGE ADMINISTRATOR-C [address] [facility] [address] [place] [address] documented as of this encounter Visit Diagnoses Not on filedocumented in this encounter Care Teams Sales Account Leader Relationship Specialty Start Date End Date Mark Segura MD [address] [place] [address] PCP - General FAMILY PRACTICE 10/22/19 Ayse Vera APRN, SENIOR STORAGE ADMINISTRATOR-C [address] [facility] [address] [place] [address] NURSE PRACTITIONER 10/17/19 Dylan Miguel MD [address] [place] [address] ORTHOPAEDIC SURGERY 10/17/19 Faustino Miranda MD [address] [place] [address] Consulting Physician CARDIOVASCULAR DISEASE 08/16/20 Soraya Bahena MD [address] [place] [address] INTERVENTIONAL CARDIOLOGY 04/04/24 documented as of this encounter
--- OUTSIDE RECORDS SUMMARY | 2025-01-11 09:36 | XMS_ITS | Encounter Summary ---
Author Organization [facility] Address [facility] [place] [address] Care Team Providers Care Postmaster Name Role Phone Ayse Vera APRN, NP-C Unavailable [phone] Dylan Miguel MD Unavailable [phone] Mark Segura MD Primary Care Provider [phone] Faustino Miranda MD Unavailable Unavailabl e Soraya Bahena MD Unavailable [phone] Encounter Details Date Type Department Care Team (Late st Contact Info) Description 06/14/2022 [email or web address] Message Enc [place] [facility] eld [address] [place] [address] Ayse Vera APRN, NP-C [address] [facility] [address] [place] [address] telephone # Social History Tobacco Use Types Packs/Day Years [...] on file 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 Answer Date of Assessment Author Status No 10/12/2019 12:36 AM AIRCRAFT ENGINE SPECIALIST Acti ve * Do you have serious [...] Description 03/20/2025 10:30 AM CDT Office Visit [facility] [address] [place] [address] Ayse Vera APRN, JUMPBASTING LINING BASTER-C [address] [facility] [address] [place] [address] documented as of this encounter Visit Diagnoses Not on filedocumented in this encounter Care Teams Postmaster Relationship Specialty Start Date End Date Mark Segura MD [address] [place] [address] PCP - General FAMILY PRACTICE 10/22/19 Ayse Vera APRN, JUMPBASTING LINING BASTER-C [address] [facility] [address] [place] [address] NURSE PRACTITIONER 10/17/19 Dylan Miguel MD [address] [place] [address] ORTHOPAEDIC SURGERY 10/17/19 Faustino Miranda MD [address] [place] [address] Consulting Physician CARDIOVASCULAR DISEASE 08/16/20 Soraya Bahena MD [address] [place] [address] INTERVENTIONAL CARDIOLOGY 04/04/24 documented as of this encounter
--- OUTSIDE RECORDS SUMMARY | 2025-01-11 09:36 | XMS_ITS | Referral Summary ---
Author Organization [facility] Address [address] [place] [address] Phone Care Team Providers Care Facilities And Grounds Director Name Role Phone Mark Segura MD Primary Care Provide r Faustino Lundy MD Unavailable [phone] Encounters Date Type Department Care Team Description 01/08/2025 10:00 AM SHOW DESIGN SUPERVISOR [facility] ENT [address] [facility] 2nd Floor, [address] [place] [address] Itzel Martinez PA Malignant melanoma of right samaritan (HCC) from Last 3 Months Allergies No known active allergies Medications metoprolol XL (TOPROL-XL) 50 mg extended release tabletIndications :hypertension Take 1 tablet (50 mg total) by mouth every morning Active rosuvastatin (CRESTOR) 5 mg tabletIndications :hyperlipidemia Take 1 tablet (5 mg total) by mouth nightly Active aspirin 81 mg enteric coated tabletIndications :prevention of thrombosis Take 1 tablet (81 mg total) by mouth solid waste collector before breakfast Active tamsulosin (FLOMAX) 0.4 mg extended release capsuleIndication s:benign prostatic hyperplasia with lower urinary tract sx Take 1 capsule (0.4 mg total) by mouth every evening Active lisinopril-hydroC HLOROthiazide (ZESTORETIC) 20-25 mg per tabletIndications :hypertension Take 2 tablets by mouth every morning Active multivitamin (MULTIPLE VITAMINS ORAL) Take 1 tablet by mouth daily after lunch Active glucosamine/chond roitin/C/Esequiel (GLUCOSAMINE 1500 COMPLEX ORAL) Take 1 tablet by mouth with lunch Active acetaminophen (TYLENOL) 500 mg tablet Take 1 tablet (500 mg total) by mouth every 6 (six) hours as needed for pain 30 tablet 3 Active Eliquis 5 mg tabletIndications :atrial fibrillation Take 1 tablet (5 mg total) by mouth 2 (two) times a day 0 3 Active Active Problems Problem Noted Date Diagnosed Date Malignant melanoma of right samaritan 07/04/2023 Social History Tobacco Use Types Packs/Day Years Used Date Smoking Tobacco: Former Cigarettes - 2012 Smokeless Tobacco: Former Chew Quit: 2007 Tobacco Cessation:Counseling Given: Not Answered AUDIT-C Answer Date Recorded Q1: How often do you have a drink containing alc ohol? Monthly or less 07/18/2023 Q2: How many drinks containi ng alcohol do you have on a typical day when you are drinking? 1 or 2 07/18/2023 Q3: How often do you have si x or more drinks on one occasion? Never 07/18/2023 Personal Safety Answer Date Recorded Have you ever been in or are you currently in a harmful physical or emotional relationship or is someone making you feel afraid or unsafe? Denies 07/18/2023 Sex and Gender Information Value Date Recorded Sex Assigned at Not on file Legal Sex Male 6:04 AM CDT Gender Identity Male 03/23/2024 12:59 PM CDT Sexual Orientation Straight 03/23/2024 12 :59 PM CDT Last Filed Vital Signs Vital Sign Reading Time Taken Comments Blood Pressure 169/98 07/18/2023 9:40 PM CDT Pulse 60 07/18/2023 9:50 PM CDT Temperature 36.2 C (97.2 F) 07/18/2023 8:45 PM CDT Respiratory Rate 14 07/18/2023 9:50 PM CDT Oxygen Saturation 99% 07/18/2023 9:50 PM CDT Inhaled Oxygen Concentration - - Weight 106.3 kg (234 lb 6.4 oz) 024 11:04 AM CDT Height 180.3 cm (5' 11 ) 07/10/2024 11: 04 AM CDT Body Mass Index 32.69 07/10/2024 11:04 AM CDT Plan of Treatment Not on file Medical Devices Implanted Type Area Occupational Therapist'S Assistant Device Identifier Shelf Expiration Date Model / Serial / Lot Stent Implanted:Qty: 1 Stent Heart Insurance [facility] MEDICARE [facility] MEDICARE Care Teams Facilities And Grounds Director Relationship Specialty Start Date End Date Mark Segura MD [address] [place] [address] PCP - General Family Medicine 07/03/23 Faustino Lundy MD [address] [place] [address] Dermatology 07/03/23
--- OUTSIDE RECORDS SUMMARY | 2025-01-11 09:36 | XMS_ITS | Clinical Summary ---
Author Organization [facility] Address [address] [place] [address] Phone Care Team Providers Care Patient Account Representative Name Role Phone Mark Segura MD Primary Care Provide r Faustino Lundy MD Unavailable [phone] Allergies No known active allergies Medications metoprolol XL (TOPROL-XL) 50 mg extended release tabletIndications :hypertension Take 1 tablet (50 mg total) by mouth every morning Active rosuvastatin (CRESTOR) 5 mg tabletIndications :hyperlipidemia Take 1 tablet (5 mg total) by mouth nightly Active aspirin 81 mg enteric coated tabletIndications :prevention of thrombosis Take 1 tablet (81 mg total) by mouth security operations manager before breakfast Active tamsulosin (FLOMAX) 0.4 mg [...] Date Diagnosed Date Malignant melanoma of right tenriism 07/04/2023 Encounters Date Type Department Care Team Description 01/08/2025 10:00 AM IP ATTORNEY Office Visit [facility] ENT [address] [facility] 2nd Floor, [address] [place] [address] Itzel Martinez PA Malignant melanoma of right tenriism (HCC) from Last 3 Months Surgical History Surgery Date Site/Laterality Comments ADENOIDECTOMY 1957 COLONOSCOPY 2017 APPENDECTOMY 2004 ORIF ANKLE FRACTURE 10/11/2019 Left ANKLE ARTHROPLASTY 03/05/2021 - 04/04/2021 Left CARDIAC CATHETERIZATION 11/05/2019 - 11/04/2020 stent placed Medical History Medical History Date Comments HL (hearing loss) 5% hearing in left e ar due to ear aches and fevers in 1957 Tinnitus both ears Abnormal ECG A-Fib on Eliquis no problems Coronary artery disease treated for HB Hypertension usually around 126/75 P 54 On me dication Family History Medical History Relation Name Comments Cancer Father Gopi Mcelroy Hearing loss Father Gopi Mcelroy Anesthesia problems Neg Hx Relation Name Status Comments Father Gopi Mcelroy Social History Tobacco Use Types Packs/Day Years Used Date Smoking Tobacco: Former Cigarettes 1 - 2012 Smokeless Tobacco: Former Chew Quit: [...] Orientation Straight 03/23/2024 12 :59 PM CDT Obstetrics History Last Filed Vital Signs Vital Sign Reading [...] 07/10/2024 11:04 AM CDT Plan of Treatment Health Maintenance Due Date Last Done Comments Colon Cancer Screening-Colonoscopy 1951 Depression Screening 1951 Hepatitis C Screening 1951 Hepatitis B Screening 1969 Pneumococcal vaccine 65+ (1 of 1 - PCV) 2001 Abdominal Aortic Aneurysm (A AA) Screen 2016 Well Visit 65+ 2016 Fall Risk Assessment 07/18/2024 07/18/2023 Covid-19 Vaccine (2023-2 5 season) 2025 08/06/2024, 09/07/2023, 09/02/2022, Additional history exists DTaP/Tdap/Td Vaccine (4 - Td or Tdap) 09/26/2033 09/26/2023, 10/11/2019, 09/25/2013 Zoster Vaccine Completed 07/02/2022, 03/05, 08/31/2017 Influenza Vaccine Completed 08/06/2024, , 09/02/2022, Additional history exists Medical Devices Implanted Type Area Quarry Equipment Operator Device Identifier Shelf Expiration Date Model / Serial / Lot Stent Implanted:Qty: 1 Stent Heart Insurance [employer] MEDICARE [facility] MEDICARE Care Teams Patient Account Representative Relationship Specialty Start Date End Date Mark Segura MD [address] [place] [address] PCP - General Family Medicine 07/03/23 Faustino Lundy MD [address] [place] [address] Dermatology 07/03/23
--- OUTSIDE RECORDS SUMMARY | 2025-01-11 09:36 | XMS_ITS | Encounter Summary ---
Author Organization [facility] Address Formerly [facility] [place] [address] Care Team Providers Care Pipe Stem Aligner Name Role Phone Ayse Vera APRN, NP-C Unavailable [phone] Dylan Miguel MD Unavailable [phone] Mark Segura MD Primary Care Provider [phone] Faustino Miranda MD Unavailable Unavailabl Soraya Headley MD Unavailable [phone] Encounter Details Date Type Department Care Team (Late st Contact Info) Description 12/06/2020 [employer] Message Enc [facility] [address] [place] [phone] Faustino Miranda MD RE: Question Social History Tobacco Use Types [...] on file Legal Sex Male 11:21 PM 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 Answer Date of Assessment Author Status No 10/12/2019 12:36 AM PRODUCT TRANSFER PUMPER Acti ve * Do you have serious [...] Description 03/20/2025 10:30 AM CDT Office Visit [facility] [address] [place] [address] Ayse Vera APRN, STRUCTURAL ANALYSIS ENGINEER-C [address] [address] documented as of this encounter Visit Diagnoses Not on filedocumented in this encounter Care Teams Pipe Stem Aligner Relationship Specialty Start Date End Date Mark Segura MD [address] [place] [address] PCP - General FAMILY PRACTICE 10/22/19 Ayse Vera APRN, STRUCTURAL ANALYSIS ENGINEER-C [address] [address] NURSE PRACTITIONER 10/17/19 Dylan Miguel MD [address] [place] [address] ORTHOPAEDIC SURGERY 10/17/19 Faustino Miranda MD [address] [place] [address] Consulting Physician CARDIOVASCULAR DISEASE 08/16/20 Soraya Bahena MD [address] [place] [address] INTERVENTIONAL CARDIOLOGY 04/04/24 documented as of this encounter
--- OUTSIDE RECORDS SUMMARY | 2025-01-11 09:36 | XMS_ITS | Encounter Summary ---
Author Organization [facility] Address [facility] [place] [address] Care Team Providers Care Asphalt Paver Name Role Phone Ayse Vera APRN, NP-C Unavailable [phone] Dylan Miguel MD Unavailable [phone] Mark Segura MD Primary Care Provider [phone] Faustino Miranda MD Unavailable Unavailabl e Soraya Bahena MD Unavailable [phone] Encounter Details Date Type Department Care Team (Late st Contact Info) Description 06/09/2022 [employer] Message Enc [facility] eld [address] [place] [address] Ayse Vera APRN PATROL LADYAnhC [address] [facility] [address] [place] [address] [employer] Social History Tobacco Use Types Packs/Day Years [...] on file Legal Sex Male 11: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 Answer Date of Assessment Author Status No 10/12/2019 12:36 AM ABSTRACT MAKER Acti ve * Do you have [...] Description 03/20/2025 10:30 AM CDT [facility] [address] [place] [phone] Ayse Vrea, FOSTER CARE THERAPIST, PATROL LADY-C [address] [facility] [address] [place] [address] documented as of this encounter Visit Diagnoses Not on filedocumented in this encounter Care Teams Asphalt Paver Relationship Specialty Start Date End Date Mark Segura MD [address] [place] [address] PCP - General FAMILY PRACTICE 10/22/19 Ayse Vera APRN, PATROL LADY-C [address] [facility] [address] [place] [address] NURSE PRACTITIONER 10/17/19 Dylan Miguel MD [address] [place] [address] ORTHOPAEDIC SURGERY 10/17/19 Faustino Miranda MD [address] [place] [address] Consulting Physician CARDIOVASCULAR DISEASE 08/16/20 Soraya Bahena MD [address] [place] [address] INTERVENTIONAL CARDIOLOGY 04/04/24 documented as of this encounter
--- OUTSIDE RECORDS SUMMARY | 2025-01-11 09:36 | XMS_ITS | Encounter Summary ---
Author Organization [facility] Address [facility] [place] [address] Care Team Providers Care Dough Scaler And Mixer Name Role Phone Ayse Vera APRN, NP-C Unavailable [phone] Dylan Miguel MD Unavailable [phone] Mark Segura MD Primary Care Provider [phone] Faustino Miranda MD Unavailable Unavailabl e Soraya Bahena MD Unavailable [phone] Encounter Details Date Type Department Care Team (Late st Contact Info) Description 04/28/2020 Abstract [facility] [address] [place] [phone] Abstract, Doc [facility] Social History Tobacco Use [...] on file Legal Sex Male 11:21 PM SENIOR CLINICAL DATA COORDINATOR Gender Identity Not on file Sexual Orientation Not on file 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 No / Unsure 04/29/2020 2:07 PM CDT documented as of this encounter Functional Status * RETIRED Are you deaf or do you have serious difficulty hearing Answer Date of Assessment Author Status No 10/27/2019 11:22 AM SENIOR CLINICAL DATA COORDINATOR Acti ve * RETIRED Are you blind or do you have serious difficulty seeing, even when wearing glasses? Answer Date of Assessment Author Status No 10/12/2019 12:36 AM SENIOR CLINICAL DATA COORDINATOR Acti ve * Do you have serious [...] Upcoming Encounters Date Type Department Care Team ([facility] st Contact Info) Description 03/20/2025 10:30 AM CDT Office Visit [facility] [address] [place] [phone] Ayse Vera, SEED CUTTER, SCHOOL ADMINISTRATOR-C [address] [facility] [address] [place] [phone] documented as of this encounter Procedures Procedure Name Priority Date/Time Associated Diagnosis Comments LIPID PANEL (OUTSIDE LAB) Routine 12/22/2019 documented in this encounter Results * LIPID PANEL (OUTSIDE LAB) (12/22/2019) CHOLESTEROL 167 TRIGLYCERIDES 125 HDL 43 LDL (CALCULATED) 101 CHOL/HDL RATIO 3.9 12/22/2019 us Doc [facility] Abstract LAB-OUTSIDE/ABSTRACTED Final Result documented in this encounter Visit Diagnoses Not on filedocumented in this encounter Care Teams Dough Scaler And Mixer Relationship Specialty Start Date End Date Mark Segura MD [address] [place] [address] PCP - General FAMILY PRACTICE 10/22/19 Ayse Vera, SEED CUTTER, SCHOOL ADMINISTRATOR-C [address] [place] [address] [phone] NURSE PRACTITIONER 10/17/19 Dylan Miguel MD [address] [place], [place] [address] ORTHOPAEDIC SURGERY 10/17/19 Faustino Miranda MD [address] [place] [address] Consulting Physician CARDIOVASCULAR DISEASE 08/16/20 Soraya Bahena MD [address] [place] [address] INTERVENTIONAL CARDIOLOGY 04/04/24 documented as of this encounter
--- OUTSIDE RECORDS SUMMARY | 2025-01-11 09:36 | XMS_ITS | Encounter Summary ---
Author Organization [facility] Address [facility] [place] [address] Care Team Providers Care Rehabilitation Construction Specialist Name Role Phone Ayse Vera APRN, NP-C Unavailable [phone] Dylan Miguel MD Unavailable [phone] Mark Segura MD Primary Care Provider [phone] Faustino Miranda MD Unavailable Unavailabl e Soraya Bahena MD Unavailable [phone] Encounter Details Date Type Department Care Team (Late st Contact Info) Description 11/18/2020 [employer] Message Enc [facility] eld [address] [place] [phone] Faustino Miranda MD Question Social History Tobacco [...] on file Legal Sex Male 11:21 PM WINDOWS SOFTWARE 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 No / Unsure 10/25/2020 5:08 PM WINDOWS SOFTWARE DEVELOPER documented as of this encounter Functional Status * RETIRED Are you deaf or do you have serious difficulty hearing Answer Date of Assessment Author Status No 10/27/2019 11:22 AM WINDOWS SOFTWARE DEVELOPER Acti ve * RETIRED Are you blind or do you have serious difficulty seeing, even when wearing glasses? Answer Date of Assessment Author Status No 10/12/2019 12:36 AM WINDOWS SOFTWARE DEVELOPER Acti ve * Do you have serious difficulty walking or climbing stairs? Answer Date of Assessment Author Status No 10/12/2019 12:36 AM WINDOWS SOFTWARE DEVELOPER Hector Camp RN Active * Do you have difficulty dressing or bathing? Answer Date of Assessment Author Status No 10/12/2019 12:36 AM Hector Santiago RN Active * Because of a physical, mental, or emotional condition, do you have difficulty doing errands alone such as visiting a doctor's office or shopping? Answer Date of Assessment Author Status No 10/12/2019 12:36 AM WINDOWS SOFTWARE DEVELOPER Hector Camp RN Active documented as of this encounter Mental Status * Because of a physical, mental, or emotional condition, do you have serious difficulty concentrating, remembering, or making decisions? Answer Entry Date Author Status No 10/12/2019 12:36 AM Hector Santiago RN Active documented in this encounter Progress Notes * Ayse Vera APRN, MIKE-C - 11/19/2020 6:05 PM CST I spoke with Diogenes. Informed him to continue using saline to moisturize his nose. His blood pressure has been well controlled, 124 mmHg systolic. Since his bleeding does appear to be coming from one location, if he continues to have issues I encouraged him to contact his PCP to see if he needs anENT referral for possible cauterization. He is to continue his Plavix till April. He v/u. OWS SOFTWARE DEVELOPER documented in this encounter Plan of Treatment Upcoming Encounters Date Type Department Care Team (Late st Contact Info) Description 03/20/2025 10:30 AM CDT [facility] [address] [place] [phone] Ayse Vera APRN, SLUBBER HAND-C [address] [address] documented as of this encounter Visit Diagnoses Not on filedocumented in this encounter Care Teams Rehabilitation Construction Specialist Relationship Specialty Start Date End Date Mark Segura MD [address] [place] [address] PCP - General FAMILY PRACTICE 10/22/19 Ayse Vera APRN, SLUBBER HAND-C [address] [phone] NURSE PRACTITIONER 10/17/19 Dylan Miguel MD [address] [place] [address] ORTHOPAEDIC SURGERY 10/17/19 Faustino Miranda MD [address] [place] [address] Consulting Physician CARDIOVASCULAR DISEASE 08/16/20 Soraya Bahena MD [address] [place] [address] INTERVENTIONAL CARDIOLOGY 04/04/24 documented as of this encounter
== END 2025-01-11 09:32 | disposition home or self-care (01) ==
PROVIDERS: Visit Provider Urology
DX: D41.02 Neoplasm of uncertain behavior of left kidney (principal); N28.1 Cyst of kidney, acquired
CPT/HCPCS: 74183; A9579

== ENCOUNTER 2025-07-07 01:40 | Day surgery (SDC) | payer MEDICARE, SELFPAY ==
[2025-06-30 13:47] VITALS: BMI 32.1
--- NOTE | 2025-06-30 14:08 | PC.NURSE ---
Spoke with _PATIENT__ regarding medication __ELIQUIS_. PATIENT_verbalizes understanding that the last dose is to be taken on _07/03/25_ and the Endoscopist will instruct them when to restart after the procedure.
--- OUTSIDE RECORDS SUMMARY | 2025-07-07 01:43 | XMS_ITS | Clinical Summary ---
Author Organization [facility] System Address [address] [place] [address] Care Team Providers Care Needle Felt Making Machine Operator Name Role Phone Ayse Vera APRN, NP-C Unavailable Dylan Miguel MD Unavailable [phone] Mark Segura MD Primary Care Provider [phone] Faustino Miranda MD Unavailable [phone] Soraya Bahena MD Unavailable [phone] Allergies Active Allergy Reactions Criticality Noted Date Comments Oxycodone GI Upset 10/11/2019 Medications lisinopril-hyd rochlorothiazi de 20-25 MG tabletIndicati ons:blood pressure/water pill Take 2 tablets by mouth daily. Indications: blood pressure/water pill 1 09/13/20 19 Active Multiple Vitamins-Wool Fleece Grader als (MULTIVITAMIN ADULTS) TabIndications :supplement Take 1 tablet by mouth daily. Indications: supplement Active GLUCOSAMINE-CH ONDROITIN 4866-5068 MG OR TABSIndication s:supplement Take 1 tablet by mouth daily. Indications: supplement Active tamsulosin 0.4 MG Cap Take 1 capsule (0.4 mg total) by mouth daily. Active aspirin EC (ECOTRIN) 81 MG tablet Take 1 tablet (81 mg total) by mouth daily. Active metoprolol succinate ER (TOPROL-XL) 50 MG 24 hr tablet Take 1 tablet (50 mg total) by mouth daily. 90 tablet 02/21/20 25 Active polyethylene glycol (GLYCOLAX) 17 GM/SCOOP powder Take 17 g by mouth daily. Dissolve powder in 240 mL water Active rosuvastatin (CRESTOR) 5 MG tablet Take 0.5 tablets (2.5 mg total) by mouth daily. 45 tablet 3 05/29/20 25 Active apixaban (ELIQUIS) 5 MG tablet Take 1 tablet by mouth twice daily 180 tablet 3 06/24/20 25 Active apixaban (ELIQUIS) 5 MG tablet Take 1 tablet (5 mg total) by mouth 2 (two) times daily. 180 tablet 3 03/20/20 24 025 Discontinued Active Problems Problem Noted Date Diagnosed Date Hyperlipidemia 04/29/2020 Paroxysmal atrial fibrillation ([facility]) 04/29/2020 S/P coronary artery stent placement 04/21/2020 Hypertension 10/17/2019 Right bundle branch block 10/17/2019 Dislocation of ankle, open 10/11/2019 Coronary artery disease Encounters Date Type Department Care Team Description 07/03/2025 Zoom[employer]ama Message Enc [facility] [address] [place] [address] Ayse Vera APRN, RAILCAR MECHANIC-C Stopping Eliquis for Colonoscopy question 06/29/2025 Telephone [facility] [address] [place] [address] Ayse Vera APRN, RAILCAR MECHANIC-C Surgical Clearance 05/04/2025 Telephone [employer] [facility] [address] [place] [address] Ayse Vera APRN, RAILCAR MECHANIC-C Anticoagulation 04/30/2025 Abstract [facility] [address] [place] [address] Abstract, Doc Pccl from Last 3 Months Immunizations Immunization Administration Dates Next Due Afluria 36 MONTHS+ [...] on file 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 Gender Identity Not on file Sexual Orientation Not on file 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 Not on file Last Filed Vital Signs Vital Sign Reading Time Taken Comments Blood Pressure 138/80 03/20/2025 10:27 AM CDT Pulse 57 03/20/2025 10:27 AM CDT Temperature 36.1 C (96.9 F) 04/29/2020 2:28 PM CDT Respiratory Rate 16 03/20/2025 10:2 7 AM CDT Oxygen Saturation 97% 03/20/2025 10: 27 AM CDT Inhaled Oxygen Concentration - - Weight 107.8 kg (237 lb 9.6 oz) 025 10:27 AM CDT Height 180.3 cm (5' 11) 03/20/2025 10: 27 AM CDT Body Mass Index 33.14 03/20/2025 10:27 AM CDT Plan of Treatment Upcoming Encounters Date Type Department Care Team (Late st Contact Info) Description 03/26/2026 10:30 AM CDT Office Visit [facility] [address] [place] [address] Ayse Vera, OPEN HEARTH HELPER, RAILCAR MECHANIC-C [address] [facility] [address] [place] [address] Health Maintenance Due Date Last Done Comments Colorectal Cancer Screening Colonoscopy (10 Years) 1950 Hepatitis C 1969 Pneumococcal Vaccine: 50+ Ye ars (1 of 2 - PCV) 1970 RSV Immunization or 60+ Years (1 - Risk 60-74 years 1-dose series) 2011 AAA SCREENING 2016 Annual Medicare Wellness Visit 2016 Zoster Vaccines (2 of 3) 10/26/2017 08/31/2017 COVID-19 Vaccine (1 - 2023-2 5 season) 2024 DTaP, Tdap and Td Vaccines ( 2 - Td or Tdap) 10/11/2029 10/11/2019 Meningococcal B Vaccine Aged Out No l onger eligible based on patient's age to complete this topic Meningococcal Vaccine Aged Out No osiris tavia eligible based on patient's age to complete this topic RSV Immunizations Under 20 Months Aged Out No longer eligible based on patient's age to complete this topic Medical Devices Implanted Type Area Civil Drafter Device Identifier Shelf Expiration Date Model / Serial / Lot Cv Xience Lakeisha Americo Mid Lad Stent Stent Coronary LAD GUTIERREZ VASCULAR 12/25/2020 [id number] / / [id number] Clamp Synthes Large Pin 4 Position - [id number] Implanted:Qty: 1 on 10/11/2019 by Dion Prado MD at [facility] Left: Ankle SYNTHES 390.009 / / Screw Schanz Synthes 4.0 X 125 - [id number] Implanted:Qty: 1 on 10/11/2019 by Dion Prado MD at [facility] Left: Ankle SYNTHES 294.777 / / Screw Schanz Synthes 5 X 175mm - [id number] Implanted:Qty: 2 on 10/11/2019 by Dion Prado MD at [facility] Left: Ankle SYNTHES 294.785 / / Pin Transfixation Synthes 6.0 X 225mm - [id number] Implanted:Qty: 1 on 10/11/2019 by Dion Prado MD at [facility] Left: Ankle SYNTHES 294.95 / / Clamp Synthes Large Combination - [id number] Implanted:Qty: 6 on 10/11/2019 by Dion Prado MD at [facility] Left: Ankle SYNTHES 390.005 / / Post Synthes 11mm 30 Deg Outrigger Mr Safe - [id number] Implanted:Qty: 2 on 10/11/2019 by Dion Prado MD at [facility] Left: Ankle SYNTHES 390.012 / / Tristan Synthes 11.0 Carbon Fiber 400mm - [id number] Implanted:Qty: 2 on 10/11/2019 by Dion Prado MD at [facility] Left: Ankle SYNTHES 394.87 / / Tristan Synthes 11.0 Carbon Fiber 150mm - [id number] Implanted:Qty: 1 on 10/11/2019 by Dion Prado MD at [facility] Left: Ankle SYNTHES 394.82 / / Tsering 8 Hole Plate Implanted:Qty: 1 on 10/27/2019 by Dylan Miguel MD at [facility] Left: Ankle [employer]ER[employer] [id number] / / Screw Tsering 2.7 Cortical Self Tapping 30mm - [id number] Implanted:Qty: 1 on 10/27/2019 by Dylan Miguel MD at [facility] Left: Ankle BIOMET INC [id number] / / Screw Tsering 2.7 Cortical Self Tapping 40mm - [id number] Implanted:Qty: 1 on 10/27/2019 by Dylan Miguel MD at [facility] Left: Ankle BI[employer] [id number] / / Screw Tsering 2.7 Cortical Self Tapping 42mm - [id number] Implanted:Qty: 1 on 10/27/2019 by Dylan Miguel MD at [facility] Left: Ankle [employer] [id number] / / Screw Tsering 2.7 Cortical Self Tapping 44mm - [id number] Implanted:Qty: 1 on 10/27/2019 by Dylan Miguel MD at [facility] Left: Ankle [employer] [id number] / / Screw Tsering 2.7 Cortical Self Tapping 28mm - [id number] Implanted:Qty: 1 on 10/27/2019 by Dylan Miguel MD at [facility] Left: Ankle [employer] [id number] / / Tsering 1/3 Tubular Plate 10 Hole Implanted:Qty: 1 on 10/27/2019 by Dylan Miguel MD at [facility] Left: Ankle [employer] [id number] / / Screw Cortical Tsering 3.5 X 16mm - [id number] Implanted:Qty: 4 on 10/27/2019 by Dylan Miguel MD at [facility] Left: Ankle [employer] [id number] / / Screw Cortical Tsering 3.5 X 55mm - [id number] Implanted:Qty: 1 on 10/27/2019 by Dylan Migule MD at [facility] Left: Ankle BI[employer] INC [id number] / / Tsering 3.5 X 60 Mm Cortical Screw Implanted:Qty: 1 on 10/27/2019 by Dylan Miguel MD at [facility] Left: Ankle [employer] [id number] / / Screw Cortical Tsering 3.5 X 18mm - [id number] Implanted:Qty: 1 on 10/27/2019 by Dylan Miguel MD at [facility] Left: Ankle [employer] [id number] / / Explanted Type Area Civil Drafter Device Identifier Shelf Expiration Date Model / Serial / Lot Drill Bit Synthes 3.5 Qc 195mm - [id number] Explanted:Qty: 1 on 10/11/2019 by Dion Prado MD at [facility] Left: Ankle SYNTHES 310.37 / / Wire Tsering Ankita 1.6mm X 150mm - [id number] Explanted:Qty: 1 on 10/27/2019 by Dylan Miguel MD at [facility] Left: Ankle [employer] [id number] / / Drill Bit Tsering 2.0mm Qc - [id number] Explanted:Qty: 1 on 10/27/2019 by Dylan Miguel MD at [facility] Left: Ankle [employer] [id number] / / Drill Bit Tsering 2.7mm Qc - [id number] Explanted:Qty: 1 on 10/27/2019 by Dylan Miguel MD at [facility] Left: Ankle [employer] [id number] / / Drill Bit Tsering 2.5mm - [id number] Explanted:Qty: 1 on 10/27/2019 by Dylan Miguel MD at [facility] Left: Ankle [employer] [id number] / / Drill Bit Tsering 3.5mm Qc - [id number] Explanted:Qty: 1 on 10/27/2019 by Dylan Miguel MD at [facility] Left: Ankle BI[employer] [id number] / / Procedures Procedure Name Priority Date/Time Associated Diagnosis Comments COMPREHENSIVE METABOLIC PANEL Routine 04/24/2025 LIPID PANEL Routine 04/24/2025 CBC, MANUAL DIFF Routine 04/24/2025 THYROID STIM HORMONE TSH Routine 04/24/2025 from Last 3 Months Results * (ABNORMAL) COMPREHENSIVE METABOLIC PANEL (04/24/2025) SODIUM S/P/B 141 GLUCOSE 98 mg/dL AST 24 BUN 25 CREATININE S/P/B 1.42(A) 0.7 - 1.3 CALCIUM S/P/B 9.1 POTASSIUM S/P/B 3.8 CHLORIDE S/P/B 103 ALT 29 GFR ESTIMATE 52 Narrative Resulting Agency Comment [facility], [place], [place] Mark Segura MD LABORATORY Final Result * LIPID PANEL (04/24/2025) Pathologist [facility] CHOLESTEROL 83 TRIGLYCERIDES 49 HDL 43 LDL (CALCULATED) 26 CHOL/HDL RATIO 1.9 NON HDL CHOLESTEROL 40 Narrative Resulting Agency Comment [facility], [place], [place] Mark Segura MD LABORATORY Final Result * CBC, MANUAL DIFF (04/24/2025) Pathologist [facility] WBC 5.8 HGB 16.4 HCT 52 PLT 169 Narrative Resulting Agency Comment [facility], [place], [place] Mark Segura MD LABORATORY Final Result * THYROID STIM HORMONE TSH (04/24/2025) Pathologist [facility] TSH 2.63 Narrative Resulting Agency Comment [facility], [place], [place] Mark Segura MD LABORATORY Final Result from Last 3 Months Insurance [employer] Advance Directives Documents on File Type Date Recorded Patient Recycle Worker Expl anation Power of Adjustment Clerk 04/09/2020 7:25 AM * Full Code (Latest Code Status on File) Date Activated Date Inactivated Comments 10/12/2019 12:23 AM 10/12/2019 4:40 PM Care Teams Needle Felt Making Machine Operator Relationship Specialty Start Date End Date Mark Segura MD [address] [place] [address] PCP - General FAMILY PRACTICE 10/22/19 Ayse Vera, OPEN HEARTH HELPER, RAILCAR MECHANIC-C [address] [facility] [address] [place] [address] NURSE PRACTITIONER 10/17/19 Dylan Miguel MD [address] [place] [address] ORTHOPAEDIC SURGERY 10/17/19 Faustino Miranda MD [address] [place] [address] Consulting Physician CARDIOVASCULAR DISEASE 08/16/20 Soraya Bahena MD [address] [place] [address] INTERVENTIONAL CARDIOLOGY 04/04/24
--- OUTSIDE RECORDS SUMMARY | 2025-07-07 01:43 | XMS_ITS | Encounter Summary ---
Author Organization [facility] System Address [facility] [place] [address] Care Team Providers Care Vice President Payment Name Role Phone Ayse Vera APRN, NP-C Unavailable Dylan Miguel MD Unavailable [phone] Mark Segura MD Primary Care Provider [phone] Faustino Miranda MD Unavailable [phone] Soraya Bahena MD Unavailable [phone] Encounter Details Date Type Department Care Team (Late st Contact Info) Description 08/28/2023 Four Interactive Message Enc [facility] [address] [place] [address] Ayse Vera APRN, CONSTRUCTION SCHEDULER-C [address] [facility] [address] [place] [address] Question from [facility] Social [...] on file Legal Sex Male 11:21 PM SOLE FILLER Gender Identity Not on file Sexual Orientation Not on file 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 Answer Date of Assessment Author Status No 10/12/2019 12:36 AM SOLE FILLER Acti ve * Do you have serious difficulty walking or climbing stairs? Answer Date of Assessment Author Status No 10/12/2019 12:36 AM SOLE FILLER Hector Camp RN Active * Do you have difficulty dressing or bathing? Answer Date of Assessment Author Status No 10/12/2019 12:36 AM Hector Santiago RN Active * Because of a physical, mental, or emotional condition, do you have difficulty doing errands alone such as visiting a doctor's office or shopping? Answer Date of Assessment Author Status No 10/12/2019 12:36 AM SOLE FILLER Hector Camp RN Active documented as of [...] Description 03/26/2026 10:30 AM CDT Office Visit [facility] [address] [place] [address] Ayse Vera APRN, CONSTRUCTION SCHEDULER-C [address] [facility] [address] [place] [address] documented as of this encounter Visit Diagnoses Not on filedocumented in this encounter Care Teams Vice President Payment Relationship Specialty Start Date End Date Mark Segura MD [address] [place] [address] PCP - General FAMILY PRACTICE 10/22/19 Ayse Vera APRN, CONSTRUCTION SCHEDULER-C [address] [facility] [address] [place] [address] NURSE PRACTITIONER 10/17/19 Dylan Miguel MD [address] [place] [address] ORTHOPAEDIC SURGERY 10/17/19 Faustino Miranda MD [address] [place] [address] Consulting Physician CARDIOVASCULAR DISEASE 08/16/20 Soraya Bahena MD [address] [place] [address] INTERVENTIONAL CARDIOLOGY 04/04/24 documented as of this encounter
--- OUTSIDE RECORDS SUMMARY | 2025-07-07 01:43 | XMS_ITS | Encounter Summary ---
Author Organization [facility] Address [facility] [place] [address] Care Team Providers Care Swaging Machine Adjuster Name Role Phone Ayse Vera APRN, NP-C Unavailable [phone] Dylan Miguel MD Unavailable [phone] Mark Segura MD Primary Care Provider [phone] Faustino Miranda MD Unavailable [phone] Soraya Bahena MD Unavailable [phone] Encounter Details Date Type Department Care Team (Late st Contact Info) Description 03/01/2022 [employer] Message Enc [facility] [address] [place] [address] Ayse Vera APRN STUDIO CAMERA OPERATOR-C [address] [facility] [address] [place] [address] irregular heart beat, pulse 93 [...] on file 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 Answer Date of Assessment Author Status No 10/12/2019 12:36 AM SHEETER MACHINE OPERATOR Acti ve * Do you have serious difficulty walking or climbing stairs? Answer Date of Assessment Author Status No 10/12/2019 12:36 AM SHEETER MACHINE OPERATOR Hector Camp RN Active * Do you [...] Description 03/26/2026 10:30 AM CDT Office Visit [facility] [address] [place] [address] Ayse Vera, CERTIFIED PESTICIDE APPLICATOR, STUDIO CAMERA OPERATOR-C [address] [facility] [address] [place] [address] documented as of this encounter Visit Diagnoses Not on filedocumented in this encounter Care Teams Swaging Machine Adjuster Relationship Specialty Start Date End Date Mark Segura MD [address] [place] [address] PCP - General FAMILY PRACTICE 12/18/19 Ayse Vera APRN, STUDIO CAMERA OPERATOR-C [address] [facility] [address] [place] [address] NURSE PRACTITIONER 10/17/19 Dylan Miguel MD [address] [place] [address] ORTHOPAEDIC SURGERY 10/17/19 Faustino Miranda MD [address] [place] [address] Consulting Physician CARDIOVASCULAR DISEASE 08/16/20 Soraya Bahena MD [address] [place] [address] INTERVENTIONAL CARDIOLOGY 04/04/24 documented as of this encounter
--- OUTSIDE RECORDS SUMMARY | 2025-07-07 01:43 | XMS_ITS | Encounter Summary ---
Author Organization [facility] System Address [facility] [place] [address] Care Team Providers Care Food Scientist Name Role Phone Ayse Vera APRN, NP-C Unavailable [phone] Dylan Miguel MD Unavailable [phone] Mark Segura MD Primary Care Provider [phone] Faustino Miranda MD Unavailable [phone] Soraya Bahena MD Unavailable [phone] Encounter Details Date Type Department Care Team (Late st Contact Info) Description 04/28/2020 Abstract [facility] [address] [place] [address] Abstract, Doc [facility] Social History Tobacco Use [...] on file 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 Answer Date of Assessment Author Status No 10/12/2019 12:36 AM PIT SUPERVISOR Acti ve * Do you have serious [...] Description 03/26/2026 10:30 AM CDT Office Visit [facility] eld [address] [place] [address] Ayse Vera, PHOTOENGRAVER, STATE FARM AGENT TEAM MEMBER-C [address] [facility] [address] [place] [address] documented as of this encounter Procedures Procedure [...] on filedocumented in this encounter Care Teams Food Scientist Relationship Specialty Start Date End Date Mark Segura MD [address] [place] [address] PCP - General FAMILY PRACTICE 10/22/19 Ayse Vera, PHOTOENGRAVER, STATE FARM AGENT TEAM MEMBER-C [address] [facility] [address] [place] [address] NURSE PRACTITIONER 10/17/19 Dylan Miguel MD [address] [place], [place] [address] ORTHOPAEDIC SURGERY 10/17/19 Faustino Miranda MD [address] [place] [address] Consulting Physician CARDIOVASCULAR DISEASE 08/16/20 Soraya Bahena MD [address] [place] [address] INTERVENTIONAL CARDIOLOGY 04/04/24 documented as of this encounter
--- OUTSIDE RECORDS SUMMARY | 2025-07-07 01:43 | XMS_ITS | Encounter Summary ---
Author Organization [facility] System Address [facility] [place] [address] Care Team Providers Care Delinquency Counselor Name Role Phone Ayse Vera APRN, NP-C Unavailable [phone] Dylan Miguel MD Unavailable [phone] Mark Segura MD Primary Care Provider [phone] Faustino [place] MD Unavailable [phone] Soraya Bahena MD Unavailable [phone] Encounter Details Date Type Department Care Team (Late st Contact Info) Description 02/04/2021 [employer] Message Enc [facility] eld [address] [place] [address] Faustino Miranda MD [address] [place] [address] Question Social History Tobacco Use Types Packs/Day [...] on file 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 Answer Date of Assessment Author Status No 10/12/2019 12:36 AM CDA TEACHER Acti ve * Do you have serious [...] Description 03/26/2026 10:30 AM CDT Office Visit [facility] [address] [place] [address] Ayse Vera APRN, SENIOR FORMULATION SCIENTIST-C [address] [facility] [address] [place] [address] documented as of this encounter Visit Diagnoses Not on filedocumented in this encounter Care Teams Delinquency Counselor Relationship Specialty Start Date End Date Mark Segura MD [address] [place] [address] PCP - General FAMILY PRACTICE 10/22/19 Ayse Vera APRN, SENIOR FORMULATION SCIENTIST-C [address] [facility] [address] [place] [address] NURSE PRACTITIONER 10/17/19 Dylan Miguel MD [address] [place] [address] ORTHOPAEDIC SURGERY 10/17/19 Faustino Miranda MD [address] [place] [address] Consulting Physician CARDIOVASCULAR DISEASE 08/16/20 Soraya Bahena MD [address] [place] [address] INTERVENTIONAL CARDIOLOGY 04/04/24 documented as of this encounter
--- OUTSIDE RECORDS SUMMARY | 2025-07-07 01:43 | XMS_ITS | Encounter Summary ---
Author Organization [facility] System Address [facility] [place] [address] Care Team Providers Care Gym Instructor Name Role Phone Ayse Vera APRN, NP-C Unavailable Dylan Miguel MD Unavailable [phone] Mark Segura MD Primary Care Provider [phone] Faustino [place] MD Unavailable [phone] Soraya Bahena MD Unavailable [phone] Encounter Details Date Type Department Care Team (Late st Contact Info) Description 12/06/2020 [employer] Message Enc [facility] [address] [place] [address] Faustino Miranda MD [address] [place] [address] RE: Question Social History Tobacco [...] on file 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 Answer Date of Assessment Author Status No 10/12/2019 12:36 AM COMPRESSOR TECHNICIAN Acti ve * Do you have serious [...] Description 03/26/2026 10:30 AM CDT [facility] [address] [place] [address] Ayse Vera APRN, ALARM INSTALLATION TECHNICIAN-C [address] [facility] [address] [place] [address] documented as of this encounter Visit Diagnoses Not on filedocumented in this encounter Care Teams Gym Instructor Relationship Specialty Start Date End Date Mark Segura MD [address] [place] [address] PCP - General FAMILY PRACTICE 10/22/19 Ayse Vera APRN, ALARM INSTALLATION TECHNICIAN-C [address] [facility] [address] [place] [address] NURSE PRACTITIONER 10/17/19 Dylan Miguel MD [address] [place] [address] ORTHOPAEDIC SURGERY 10/17/19 Faustino Miranda MD [address] [place] [address] Consulting Physician CARDIOVASCULAR DISEASE 08/16/20 Soraya Bahena MD [address] [place] [address] INTERVENTIONAL CARDIOLOGY 04/04/24 documented as of this encounter
--- OUTSIDE RECORDS SUMMARY | 2025-07-07 01:43 | XMS_ITS | Encounter Summary ---
Author Organization [facility] Address [facility] [place] [address] Care Team Providers Care Construction Pit Worker Name Role Phone Ayse Vera APRN, NP-C Unavailable Dylan Miguel MD Unavailable [phone] Mark Segura MD Primary Care Provider [phone] Faustino Miranda MD Unavailable [phone] Soraya Bahena MD Unavailable [phone] Encounter Details Date Type Department Care Team (Late st Contact Info) Description 03/10/2021 Gudog Message Enc [facility]eld [address] [place] [address] Ayse Vera APRN, BUSINESS PRACTICES OFFICER-C [address] [facility] [address] [place] [address] RE: Question Social History Tobacco [...] file 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 Answer Date of Assessment Author Status No 10/12/2019 12:36 AM AIRCRAFT LAY OUT WORKER Acti ve * Do you have serious [...] Description 03/26/2026 10:30 AM CDT Office Visit [facility] eld [address] [place] [address] Ayse Vera, PATIENT COORDINATOR, BUSINESS PRACTICES OFFICER-C [address] [facility] [address] [place] [address] documented as of this encounter Visit Diagnoses Not on filedocumented in this encounter Care Teams Construction Pit Worker Relationship Specialty Start Date End Date Mark Segura MD [address] [place] [address] PCP - General FAMILY PRACTICE 10/22/19 Ayse Vera APRN, BUSINESS PRACTICES OFFICER-C [address] [facility] [address] [place] [address] NURSE PRACTITIONER 10/17/19 Dylan Miguel MD [address] [place] [address] ORTHOPAEDIC SURGERY 10/17/19 Faustino Miranda MD [address] [place] [address] Consulting Physician CARDIOVASCULAR DISEASE 08/16/20 Soraya Bahena MD [address] [place] [address] INTERVENTIONAL CARDIOLOGY 04/04/24 documented as of this encounter
--- OUTSIDE RECORDS SUMMARY | 2025-07-07 01:43 | XMS_ITS | Encounter Summary ---
Author Organization [facility] Address [facility] [place] [address] Care Team Providers Care Moving Van Driver Name Role Phone Ayse Vera APRN, NP-C Unavailable Dylan Miguel MD Unavailable [phone] Mark Segura MD Primary Care Provider [phone] Faustino Miranda MD Unavailable [phone] Soraya Bahena MD Unavailable [phone] Encounter Details Date Type Department Care Team (Late st Contact Info) Description 11/18/2020 ISH Message Enc [facility] eld [address] [place] [address] Faustino Miranda MD [address] [place] [address] Question Social History Tobacco Use [...] on file 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 No / Unsure 10/25/2020 5:08 PM SALESPERSON AUTOMOBILES documented as of this encounter Functional Status * RETIRED Are you deaf or do you have serious difficulty hearing Answer Date of Assessment Author Status No 10/27/2019 11:22 AM SALESPERSON AUTOMOBILES Acti ve * RETIRED Are you blind or do you have serious difficulty seeing, even when wearing glasses? Answer Date of Assessment Author Status No 10/12/2019 12:36 AM SALESPERSON AUTOMOBILES Acti ve * Do you have serious [...] continue his Plavix till April. He v/u. SPERSON AUTOMOBILES documented in this encounter Plan of Treatment Upcoming Encounters Date Type Department Care Team (Late st Contact Info) Description 03/26/2026 10:30 AM CDT Office Visit [facility] eld [address] [place] [address] Ayse Vera APRN, TRANSFER SPECIALIST-C [address] [address] documented as of this encounter Visit Diagnoses Not on filedocumented in this encounter Care Teams Moving Van Driver Relationship Specialty Start Date End Date Mark Segura MD [address] [place], [place] [id number] PCP - General FAMILY PRACTICE 10/22/19 Ayse Vera APRN, TRANSFER SPECIALIST-C [address] [address] NURSE PRACTITIONER 10/17/19 Dylan Miguel MD [address] [place] [address] ORTHOPAEDIC SURGERY 10/17/19 Faustino Miranda MD [address] [place] [address] Consulting Physician CARDIOVASCULAR DISEASE 08/16/20 Soraya Bahena MD [address] [place] [address] INTERVENTIONAL CARDIOLOGY 04/04/24 documented as of this encounter
--- OUTSIDE RECORDS SUMMARY | 2025-07-07 01:43 | XMS_ITS | Encounter Summary ---
Author Organization [facility] Address [facility] [place] [address] Care Team Providers Care Die Presser Name Role Phone Ayse Vera APRN, NP-C Unavailable Dylan Miguel MD Unavailable [phone] Mark Segura MD Primary Care Provider [phone] Faustino Miranda MD Unavailable [phone] Soraya Bahena MD Unavailable [phone] Encounter Details Date Type Department Care Team (Late st Contact Info) Description 04/18/2024 Pushpay Message Enc [facility] eld [address] [place] [address] Ayse Vera APRN, MANAGER LAN-C [address] [facility] [address] [place] [address] Blood test Social History Tobacco [...] on file Legal Sex Male 11:21 PM POLE CUTTER Gender Identity Not on file Sexual Orientation Not on file 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 Answer Date of Assessment Author Status No 10/12/2019 12:36 AM POLE CUTTER Acti ve * Do you have serious [...] Description 03/26/2026 10:30 AM CDT Office Visit [facility] eld [address] [place] [address] Ayse Vera, CONSULTANT INTERN, MANAGER LAN-C [address] [facility] [address] [place] [address] documented as of this encounter Visit Diagnoses Not on filedocumented in this encounter Care Teams Die Presser Relationship Specialty Start Date End Date Mark Segura MD [address] [place] [address] PCP - General FAMILY PRACTICE 10/22/19 Ayse Vera APRN, MANAGER LAN-C [address] [facility] [address] [place] [address] NURSE PRACTITIONER 10/17/19 Dylan Miguel MD [address] [place] [address] ORTHOPAEDIC SURGERY 10/17/19 Faustino Miranda MD [address] [place] [address] Consulting Physician CARDIOVASCULAR DISEASE 08/16/20 Soraya Bahena MD [address] [place] [address] INTERVENTIONAL CARDIOLOGY 04/04/24 documented as of this encounter
--- OUTSIDE RECORDS SUMMARY | 2025-07-07 01:43 | XMS_ITS | Encounter Summary ---
Author Organization [facility] Address [facility] [place] [address] Care Team Providers Care First Aid Nurse Name Role Phone Ayse Vera APRN, NP-C Unavailable Dylan Miguel MD Unavailable [phone] Mark Segura MD Primary Care Provider [phone] Faustino Miranda MD Unavailable [phone] Soraya Bahena MD Unavailable [phone] Encounter Details Date Type Department Care Team (Late st Contact Info) Description 12/12/2020 RFIDeas Message Enc [facility] [address] [place] [address] Faustino Miranda MD [address] [place] [address] Medication Questions Social History Tobacco Use Types [...] on file 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 Answer Date of Assessment Author Status No 10/12/2019 12:36 AM LEADERSHIP RECRUITER Acti ve * Do you have serious difficulty walking or climbing stairs? Answer Date of Assessment Author Status No 10/12/2019 12:36 AM LEADERSHIP RECRUITER Hector Camp RN Active * Do you have difficulty dressing or bathing? Answer Date of Assessment Author Status No 10/12/2019 12:36 AM LEADERSHIP RECRUITER Hector Camp RN Active * Because of a physical, mental, or emotional condition, do you have difficulty doing errands alone such as visiting a doctor's office or shopping? Answer Date of Assessment Author Status No 10/12/2019 12:36 AM LEADERSHIP RECRUITER Hector Camp RN Active documented as of this encounter Mental Status * Because of a physical, mental, or emotional condition, do you have serious difficulty concentrating, remembering, or making decisions? Answer Entry Date Author Status No 10/12/2019 12:36 AM Hector Santiago RN Active documented in this encounter Progress Notes * Ayse Vera APRN, NP-C - 12/13/2020 8:34 AM CST Returned call to Diogenes. Informed him that he may restart Plavix the day following the procedure, provided that the surgeon agrees based on his bleeding risk. I encouraged him to check with the surgeon afterwards. He v/u. ERSHIP RECRUITER documented in this encounter Plan of Treatment Upcoming Encounters Date Type Department Care Team (Late st Contact Info) Description 03/26/2026 10:30 AM CDT Office Visit [facility] eld [address] [place] [address] Ayse Vera APRN, NP-C [address] [facility] [address] [place] [address] documented as of this encounter Visit Diagnoses Not on filedocumented in this encounter Care Teams First Aid Nurse Relationship Specialty Start Date End Date Mark Segura MD [address] [place] [address] PCP - General FAMILY PRACTICE 10/22/19 Ayse Vera, ASSISTANT QUALITY MANAGER, CYTOGENETICS TECHNOLOGIST-C [address] [facility] [address] [place] [address] NURSE PRACTITIONER 10/17/19 Dylan Miguel MD [address] [place] [address] ORTHOPAEDIC SURGERY 10/17/19 Faustino Miranda MD [address] [place] [address] Consulting Physician CARDIOVASCULAR DISEASE 08/16/20 Soraya Bahena MD [address] [place] [address] INTERVENTIONAL CARDIOLOGY 04/04/24 documented as of this encounter
--- OUTSIDE RECORDS SUMMARY | 2025-07-07 01:43 | XMS_ITS | Encounter Summary ---
Author Organization [facility] Address [facility]6 [place] [address] Care Team Providers Care Financial Reserve Clerk Name Role Phone Ayse Vera APRN, NP-C Unavailable Dylan Miguel MD Unavailable [phone] Mark Segura MD Primary Care Provider [phone] Faustino Miranda MD Unavailable [phone] Soraya Bahena MD Unavailable [phone] Encounter Details Date Type Department Care Team (Late st Contact Info) Description 04/23/2022 RainKing Message Enc [facility] eld [address] [place] [address] Ayse Vera APRN, RADAR TECHNICIAN-C [address] [facility] [address] [place] [address] Xarelto Social History Tobacco Use [...] on file 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 Answer Date of Assessment Author Status No 10/12/2019 12:36 AM BOTTOM LIQUOR ATTENDANT Acti ve * Do you have serious [...] Description 03/26/2026 10:30 AM CDT Office Visit [facility] eld [address] [place] [address] Ayse Vera, SCREEN DOOR MAKER, RADAR TECHNICIAN-C [address] [facility] [address] [place] [address] documented as of this encounter Visit Diagnoses Not on filedocumented in this encounter Care Teams Financial Reserve Clerk Relationship Specialty Start Date End Date Mark Segura MD [address] [place] [address] PCP - General FAMILY PRACTICE 10/22/19 Ayse Vera APRN, RADAR TECHNICIAN-C [address] [facility] [address] [place] [address] NURSE PRACTITIONER 10/17/19 Dylan Miguel MD [address] [place] [address] ORTHOPAEDIC SURGERY 10/17/19 Faustino Miranda MD [address] [place] [address] Consulting Physician CARDIOVASCULAR DISEASE 08/16/20 Soraya Bahena MD [address] [place] [address] INTERVENTIONAL CARDIOLOGY 04/04/24 documented as of this encounter
--- OUTSIDE RECORDS SUMMARY | 2025-07-07 01:43 | XMS_ITS | Encounter Summary ---
Author Organization [facility] Address [facility] [place] [address] Care Team Providers Care Administration Vice President Name Role Phone Faustino Stevens MD Primary Care Provider Ayse Vera APRN, DOCK CLERK-C Unavailable [phone] Dylan Miguel MD Unavailable [phone] Mark Segura MD Primary Care Provider [phone] Faustino Miranda MD Unavailable [phone] Soraya Bahena MD Unavailable [phone] Encounter Details Date Type Department Care Team (Late st Contact Info) Description 04/12/2019 Abstract SFL CONVERSION [address] [place] [address] , Generic Conversion, Social History Tobacco Use Types Packs/Day Years Used Date Smoking Tobacco: Never Assessed Sex and Gender Information Value Date Recorded Sex Assigned at Not on file 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 Gender Identity Not on file Sexual Orientation Not on file documented as of this encounter Plan of Treatment Upcoming Encounters Date Type Department Care Team (Late st Contact Info) Description 03/26/2026 10:30 AM CDT Office Visit [facility] eld [address] [place] [address] Ayse Vera APRN, DOCK CLERK-C [address] [facility] [address] [place] [address] documented as of this encounter Visit Diagnoses Not on filedocumented in this encounter Additional Health Concerns Infection Onset Date Last Indicated Resolved Time COVID-19 Rule Out 04/19/2020 04/19/2020 04/20/2020 10:39 PM CDT documented as of this encounter Care Teams Administration Vice President Relationship Specialty [place] [address] [place] [address] PCP - General FAMILY PRACTICE 10/11/19 10/21/19 Mark Segura MD [address] [place] [address] PCP - General FAMILY PRACTICE 10/22/19 Ayse Vera APRN, DOCK CLERK-C [address] [place] [address] [address] [place] [address] NURSE PRACTITIONER 10/17/19 Dylan Miguel MD [address] [place] [address] ORTHOPAEDIC SURGERY 10/17/19 Faustino Miranda MD [address] [place] [address] Consulting Physician CARDIOVASCULAR DISEASE 08/16/20 Soraya Bahena MD [address] [place] [address] INTERVENTIONAL CARDIOLOGY 04/04/24 documented as of this encounter
--- OUTSIDE RECORDS SUMMARY | 2025-07-07 01:43 | XMS_ITS | Encounter Summary ---
Author Organization [facility] Address [facility] [place] [address] Care Team Providers Care It Sales Executive Name Role Phone Ayse Vera APRN, NP-C Unavailable Dylan Miguel MD Unavailable [phone] Mark Segura MD Primary Care Provider [phone] Faustino Miranda MD Unavailable [phone] Soraya Bahena MD Unavailable [phone] Encounter Details Date Type Department Care Team (Late st Contact Info) Description 06/09/2022 Contestomatik Message Enc [facility] eld [address] [place] [address] Ayse Vera APRN, HAZARDOUS WASTE MATERIAL TECHNICIAN-C [address] [facility] [address] [place] [address] Eliquis Social History Tobacco Use [...] on file 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 Answer Date of Assessment Author Status No 10/12/2019 12:36 AM BONDING EQUIPMENT OPERATOR Acti ve * Do you have [...] Description 03/26/2026 10:30 AM CDT Office Visit [facility] eld [address] [place] [address] Ayse Vera, ORGAN PIPE VOICER, HAZARDOUS WASTE MATERIAL TECHNICIAN-C [address] [facility] [address] [place] [address] documented as of this encounter Visit Diagnoses Not on filedocumented in this encounter Care Teams It Sales Executive Relationship Specialty Start Date End Date Mark Segura MD [address] [place] [address] PCP - General FAMILY PRACTICE 10/22/19 Ayse Vera APRN, HAZARDOUS WASTE MATERIAL TECHNICIAN-C [address] [facility] [address] [place] [address] NURSE PRACTITIONER 10/17/19 Dylan Miguel MD [address] [place] [address] ORTHOPAEDIC SURGERY 10/17/19 Faustino Miranda MD [address] [place] [address] Consulting Physician CARDIOVASCULAR DISEASE 08/16/20 Soraya Bahena MD [address] [place] [address] INTERVENTIONAL CARDIOLOGY 04/04/24 documented as of this encounter
--- OUTSIDE RECORDS SUMMARY | 2025-07-07 01:43 | XMS_ITS | Encounter Summary ---
Author Organization [facility] Address [facility] [place] [address] Care Team Providers Care Diabetes Nurse Name Role Phone Ayse Vera APRN, NP-C Unavailable [phone] Dylan Miguel MD Unavailable [phone] Mark Segura MD Primary Care Provider [phone] Faustino Miranda MD Unavailable [phone] Soraya Bahena MD Unavailable [phone] Encounter Details Date Type Department Care Team (Late st Contact Info) Description 10/06/2021 KidStart Message Enc [facility] [address] [place] [address] Ayse Vera APRN SHOWROOM SALESPERSON-C [address] [facility] [address] [place] [address] RE: Follow Up/Update Social History [...] on file 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 Answer Date of Assessment Author Status No 10/12/2019 12:36 AM TURKEY FARMER Acti ve * Do you have serious difficulty walking or climbing stairs? Answer Date of Assessment Author Status No 10/12/2019 12:36 AM Hector aSntiago RN Active * Do you have difficulty [...] Description 03/26/2026 10:30 AM CDT Office Visit [facility] eld [address] [place] [address] Ayse Vera, CONCESSION CASHIER, SHOWROOM SALESPERSON-C [address] [facility] [address] [place] [address] documented as of this encounter Visit Diagnoses Not on filedocumented in this encounter Care Teams Diabetes Nurse Relationship Specialty Start Date End Date Mark Segura MD [address] [place] [address] PCP - General FAMILY PRACTICE 10/22/19 Ayse Vera, SURAJ, SHOWROOM SALESPERSON-C [address] [facility] [address] [place] [address] NURSE PRACTITIONER 10/17/19 Dylan Miguel MD [address] [place] [address] ORTHOPAEDIC SURGERY 10/17/19 Faustino Miranda MD [address] [place] [address] Consulting Physician CARDIOVASCULAR DISEASE 08/16/20 Soraya Bahena MD [address] [place] [address] INTERVENTIONAL CARDIOLOGY 04/04/24 documented as of this encounter
--- OUTSIDE RECORDS SUMMARY | 2025-07-07 01:43 | XMS_ITS | Encounter Summary ---
Author Organization [facility] Address [facility] [place] [address] Care Team Providers Care Bulb Farmworker Name Role Phone Ayse Vera APRN, NP-C Unavailable Dylan Miguel MD Unavailable [phone] Mark Segura MD Primary Care Provider [phone] Faustino Miranda MD Unavailable [phone] Soraya Bahena MD Unavailable [phone] Encounter Details Date Type Department Care Team (Late st Contact Info) Description 04/12/2023 Abstract [facility] [address] [place] [address] Faustino Miranda MD [address] [place] [address] Social History Tobacco Use Types Packs/Day Years [...] on file 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 No / Unsure 03/22/2023 10:15 AM CDT documented as of this encounter Functional Status * RETIRED Are you deaf or do you have serious difficulty hearing Answer Date of Assessment Author Status No 10/27/2019 11:22 AM PELLET MILL OPERATOR Acti ve * RETIRED Are you blind or do you have serious difficulty seeing, even when wearing glasses? Answer Date of Assessment Author Status No 10/12/2019 12:36 AM PELLET MILL OPERATOR Acti ve * Do you have [...] 03/26/2026 10:30 AM CDT [facility] [address] [place] [address] Ayse Vera, MEDICAL RECORDS SECRETARY, VEGETABLE PACKER-C [address] [facility] [address] [place] [address] documented as of this encounter Procedures Procedure Name Priority Date/Time Associated Diagnosis Comments CMP (ABSTRACTED LAB) Routine 04/05/2023 TSH (OUTSIDE LAB) Routine 04/05/2023 CBC (OUTSIDE LAB) Routine 04/05/2023 ALBUMIN URINE RANDOM W/CREATININE Routine 04/05/2023 LIPID PANEL Routine 04/05/2023 PSA, TOTAL AND FREE Routine 04/05/2023 documented in this encounter Results * ALBUMIN URINE RANDOM (04/05/2023) Pathologist [facility] CREATININE RANDOM (U) 133 20 - 230 MICROALB/CREAT 8 <30 ALBUMIN (U) 1.0 URINE SPECIMEN / Unknown 04/05/2023 us Default History Genericprovider URINE ORDERABLES Final Result * PSA, TOTAL AND FREE (04/05/2023) [facility] PSA TOTAL 2.66 < or = 4.00 04/05/2023 us Default History Genericprovider LABORATORY Final Result * CBC (OUTSIDE LAB) (04/05/2023) [facility] WBC 6.2 3.8 - 10.8 HGB 15.9 [...] Final Result * TSH (OUTSIDE LAB) (04/05/2023) Pathologist [facility] TSH 1.78 0.40 - 4.50 04/05/2023 us Default History Genericprovider LAB-OUTSIDE/ABST RACTED Final Result * CMP (ABSTRACTED LAB) (04/05/2023) Pathologist [facility] SODIUM S/P/B 141 135 - 146 POTASSIUM [...] RACTED Final Result * LIPID PANEL (04/05/2023) Pathologist [facility] CHOLESTEROL 81 <200 HDL 38 >or=40 TRIGLYCERIDES 75 <150 NON HDL CHOLESTEROL 43 <130 CHOL/HDL RATIO 2.1 <5.0 LDL (CALCULATED) 27 04/05/2023 us Default History Genericprovider LABORATORY Final Result documented in this encounter Visit Diagnoses Not on filedocumented in this encounter Care Teams Bulb Farmworker Relationship Specialty Start Date End Date Mark Segura MD [address] [place] [address] PCP - General FAMILY PRACTICE 10/22/19 Ayse Vera APRN, VEGETABLE PACKER-C [address] [facility] [address] [place] [phone] NURSE PRACTITIONER 10/17/19 Dylan Miguel MD [address] [place] [address] ORTHOPAEDIC SURGERY 10/17/19 Faustino Miranda MD [address] [place] [phone] Consulting Physician CARDIOVASCULAR DISEASE 08/16/20 Soraya Bahena MD [address] [place] [address] INTERVENTIONAL CARDIOLOGY 04/04/24 documented as of this encounter
--- OUTSIDE RECORDS SUMMARY | 2025-07-07 01:43 | XMS_ITS | Encounter Summary ---
Author Organization [facility] Address [facility] [place] [address] Care Team Providers Care Full Stack Software Engineer Name Role Phone Ayse Vera APRN, NP-C Unavailable [phone] Dylan Miguel MD Unavailable [phone] Mark Segura MD Primary Care Provider [phone] Faustino Miranda MD Unavailable [phone] Soraya Bahena MD Unavailable [phone] Encounter Details Date Type Department Care Team (Late st Contact Info) Description 06/14/2022 AirPR Message Enc [facility] [address] [place] [address] Ayse Vera APRN, BRAKE REPAIRER-C [address] [facility] [address] [place] [address] telephone # Social History Tobacco [...] on file 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 Answer Date of Assessment Author Status No 10/12/2019 12:36 AM FISHERIES TECHNICIAN Acti ve * Do you have [...] Description 03/26/2026 10:30 AM CDT Office Visit [facility] [address] [place] [phone] Ayse Vera, MED PEDS, BRAKE REPAIRER-C [address] [facility] [address] [place] [address] documented as of this encounter Visit Diagnoses Not on filedocumented in this encounter Care Teams Full Stack Software Engineer Relationship Specialty Start Date End Date Mark Segura MD [address] [place] [address] PCP - General FAMILY PRACTICE 10/22/19 Ayse Vera APRN, BRAKE REPAIRER-C [address] [facility] [address] [place] [address] NURSE PRACTITIONER 10/17/19 Dylan Miguel MD [address] [place] [address] ORTHOPAEDIC SURGERY 10/17/19 Faustino Miranda MD [address] [place] [address] Consulting Physician CARDIOVASCULAR DISEASE 08/16/20 Soraya Bahena MD [address] [place] [address] INTERVENTIONAL CARDIOLOGY 04/04/24 documented as of this encounter
--- OUTSIDE RECORDS SUMMARY | 2025-07-07 01:43 | XMS_ITS | Clinical Summary ---
Author Organization [facility] Address [address] [place] [address] Phone Care Team Providers Care Mat Packer Name Role Phone Mark Segura MD Primary Care Provide r Faustino Lundy MD Unavailable [phone] Allergies No known active allergies Medications metoprolol XL (TOPROL-XL) 50 mg extended release tabletIndications :hypertension Take 1 tablet (50 mg total) by mouth every morning Active rosuvastatin (CRESTOR) 5 mg tabletIndications :hyperlipidemia Take 1 tablet (5 mg total) by mouth nightly Active aspirin 81 mg enteric coated tabletIndications :prevention of thrombosis Take 1 tablet (81 mg total) by mouth warehouse operations manager before breakfast Active tamsulosin (FLOMAX) [...] Date Diagnosed Date 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 Surgical History Surgery Date Site/Laterality Comments ADENOIDECTOMY [...] Years Used Date Smoking Tobacco: Former Cigarettes 2012 Smokeless Tobacco: Former Chew Quit: 2007 [...] 11:04 AM CDT Height 180.3 cm (5' 11) 07/10/2024 11: 04 AM CDT Body Mass [...] 2025 08/06/2024, 09/07/2023, 09/02/2022, Additional history exists Influenza Vaccine (#1) 2025 , 09/07/2023, 09/02/2022, Additional history exists DTaP/Tdap/Td Vaccine (4 - Td or Tdap) 09/26/2033 09/26/2023, 10/11/2019, 09/25/2013 Zoster Vaccine Completed 07/02/2022, 03/05, 08/31/2017 Medical Devices Implanted Type Area Lead Rider Device Identifier Shelf Expiration Date Model / Serial / Lot Stent Implanted:Qty: 1 Stent Heart Insurance [employer] MEDICARE [facility] MEDICARE Care Teams Mat Packer Relationship Specialty Start Date End Date Mark Segura MD [address] [place] [address] PCP - General Family Medicine 07/03/23 Faustino Lundy MD [address] [place] [address] Dermatology 07/03/23
--- OUTSIDE RECORDS SUMMARY | 2025-07-07 01:43 | XMS_ITS | Encounter Summary ---
Author Organization [facility] Address [facility] [place] [address] Care Team Providers Care Camera Systems Engineer Name Role Phone Ayse Vera APRN, NP-C Unavailable Dylan Miguel MD Unavailable [phone] Mark Segura MD Primary Care Provider [phone] Faustino Miranda MD Unavailable [phone] Soraya Bahena MD Unavailable [phone] Encounter Details Date Type Department Care Team (Late st Contact Info) Description 03/01/2022 SmartHabitat Message Enc [facility] [address] [place] [address] Ayse Vera APRN BRICK PAVER-C [address] [facility] [address] [place] [address] irregular heart beat this morning [...] on file 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 Answer Date of Assessment Author Status No 10/12/2019 12:36 AM FORMING MACHINE TENDER Acti ve * Do you have serious [...] Description 03/26/2026 10:30 AM CDT Office Visit [facility] [address] [place] [phone] Ayse Vera, MONOTYPE SETTER, BRICK PAVER-C [address] [facility] [address] [place] [address] documented as of this encounter Visit Diagnoses Not on filedocumented in this encounter Care Teams Camera Systems Engineer Relationship Specialty Start Date End Date Mark Segura MD [address] [place] [address] PCP - General FAMILY PRACTICE 10/22/19 Ayse Vera APRN, BRICK PAVER-C [address] [facility] [address] [place] [address] NURSE PRACTITIONER 10/17/19 Dylan Miguel MD [address] [place] [address] ORTHOPAEDIC SURGERY 10/17/19 Faustino Miranda MD [address] [place] [address] Consulting Physician CARDIOVASCULAR DISEASE 08/16/20 Soraya Bahena MD [address] [place] [address] INTERVENTIONAL CARDIOLOGY 04/04/24 documented as of this encounter
[2025-07-07 10:02] VITALS: BP 151/100; PULSE 57; RESP 16; TEMP 36.2; O2SAT 98; BMI 31.3
[2025-07-07] MEDS: LACTATED RINGERS 1,000 ML 150 ML IV CONT (10:22)
--- NOTE | 2025-07-07 11:07 | WPDANESEPPF ---
Anes - Initial Pre Proc Eval Procedure: Operation Date: 07/07/25 11:00 Proposed Procedures p Screening Colonoscopy - Rajiv Byrnes DO Date/Time: 07/07/25 11:07 Surgeon: Rajiv Byrnes DO Pre Op Diagnosis: Screening for malignant neoplasm of colon Patient Data Age: 75 Gender: M Height: 1.8 m Weight: 101.9 kg Last Vital Signs Temp 97.2 F L 07/07/25 10:02 Pulse 57 L 07/07/25 10:02 Resp 16 07/07/25 10:02 BP 151/100 H 07/07/25 10:02 Pulse Ox 98 07/07/25 10:02 O2 Del Method Room Air 07/07/25 10:02 Allergies Allergy/AdvReac Type Severity Reaction Status Date / Time No Known Allergies Allergy Verified 07/07/25 10:11 Home Medications ?Medication ?Instructions ?Recorded ?Confirmed ?Type apixaban 5 mg tablet (Eliquis) 5 mg PO BID 11/19/24 07/07/25 History aspirin 81 mg tablet,delayed 81 mg PO DAILY 11/19/24 07/07/25 History release glucosamine sulf dipotassium Cl 1 tablet PO DAILY 06/30/25 07/07/25 History 750 mg-chondroitin sulf 600 mg tablet (Glucosamine-Chondroitin 3X Triple Strength) lisinopril 20 1 tablet PO BID 06/30/25 07/07/25 History mg-hydrochlorothiazide 25 mg tablet metoprolol succinate 50 mg 50 mg PO DAILY 06/30/25 07/07/25 History tablet,extended release 24 hr multivitamin (Daily Multi-Vitamin 1 tablet PO DAILY 06/30/25 07/07/25 History tablet) polyethylene glycol 3350 17 17 g PO DAILY 06/30/25 07/07/25 History gram/dose oral powder (Miralax) rosuvastatin 5 mg tablet 2.5 mg PO DAILY 06/30/25 07/07/25 History tamsulosin 0.4 mg capsule 0.4 mg PO .QEVE 06/30/25 07/07/25 History Patient hx anesthesia problems: none Family hx anesthesia problems: none Results Review: All pre-operative results and documents have been reviewed as part of the pre-operative evaluation. [facility] Family History Family History Other Hypertension Social History Social History Smoking packs per day: 1 Smoking cigarettes per day: 20.0 Years smoked: 17 Smoking pack-years: 17.00 Smoking status: Former smoker Tobacco type: cigarettes and smokeless tobacco Smokeless tobacco user: chewing tobacco Smoking end date: 11/05/09 Alcohol intake: current Substance use: never Substance use type: does not use Living arrangements: with family Spiritual care concerns: No Anes - Eval Final PreProcedure Day of Procedure 07/07/25 11:07 Patient weight: normal Heart: regular rate and rhythm Lungs: clear to auscultation Airway: Mallampati scale class II Neurological: alert and oriented Last oral intake: >/= 8 hours ASA classification: III Emergent: no Anesthetic plan: proceed Anesthesia type and monitoring: general GIVS and standard monitoring Results Review: All pre-operative results and documents have been reviewed as part of the pre-operative evaluation. Informed Consent: The patient's anesthetic plan and its attendant risks and benefits were discussed with the patient/family/POA. Questions were solicited and answers provided to the satisfaction of the patient/family/POA.
--- NOTE | 2025-07-07 11:08 | PM.IMHP ---
H&P: HPI History of Present Illness Date/Time: 07/07/25 11:08 Chief Complaint: screening for colorectal cancer Narrative: this is a 75-year-old man who presents for colonoscopy. His last colonoscopy was about 10 or 11 years ago. He denies any hematochezia or melena. He denies family history of colon cancer Review of Systems Review of Systems: All systems reviewed & are unremarkable except as noted in HPI and below Constitutional: Constitutional: Denies chills, Denies fever(s), Denies headache(s) and Denies weight loss Eyes: Eyes: Denies change in vision ENT: Denies dizziness, Denies headache(s), Denies neck mass and Denies throat swelling Cardiovascular: Cardiovascular: Denies chest pain, Denies lightheadedness and Denies dyspnea Respiratory: Respiratory: Denies cough, Denies dyspnea and Denies wheezing Gastrointestinal: Gastrointestinal: Denies abdominal pain, Denies change in bowel habits, Denies nausea and Denies vomiting Genitourinary: Genitourinary: Denies hematuria and Denies dysuria Musculoskeletal: Musculoskeletal: Reports as per HPI Integumentary/Breasts: Skin/Breast: Reports as per HPI Neurologic: Denies dizziness and Denies headache(s) Allergic/Immunologic: Allergic/Immunologic: Denies throat swelling and Denies wheezing PMFSH Family History Family History Other Hypertension Social History Social History Smoking packs per day: 1 Smoking cigarettes per day: 20.0 Years smoked: 17 Smoking pack-years: 17.00 Smoking status: Former smoker Tobacco type: cigarettes and smokeless tobacco Smokeless tobacco user: chewing tobacco Smoking end date: 11/05/09 Alcohol intake: current Substance use: never Substance use type: does not use Living arrangements: with family Spiritual care concerns: No Meds Home Medications and Allergies Home Medications ?Medication ?Instructions ?Recorded ?Confirmed ?Type apixaban 5 mg tablet (Eliquis) 5 mg PO BID 11/19/24 07/07/25 History aspirin 81 mg tablet,delayed 81 mg PO DAILY 11/19/24 07/07/25 History release glucosamine sulf dipotassium Cl 1 tablet PO DAILY 06/30/25 07/07/25 History 750 mg-chondroitin sulf 600 mg tablet (Glucosamine-Chondroitin 3X Triple Strength) lisinopril 20 1 tablet PO BID 06/30/25 07/07/25 History mg-hydrochlorothiazide 25 mg tablet metoprolol succinate 50 mg 50 mg PO DAILY 06/30/25 07/07/25 History tablet,extended release 24 hr multivitamin (Daily Multi-Vitamin 1 tablet PO DAILY 06/30/25 07/07/25 History tablet) polyethylene glycol 3350 17 17 g PO DAILY 06/30/25 07/07/25 History gram/dose oral powder (Miralax) rosuvastatin 5 mg tablet 2.5 mg PO DAILY 06/30/25 07/07/25 History tamsulosin 0.4 mg capsule 0.4 mg PO .QEVE 06/30/25 07/07/25 History Allergies Allergy/AdvReac Type Severity Reaction Status Date / Time No Known Allergies Allergy Verified 07/07/25 10:11 Vital Signs Vital Signs - 24 hr 07/07/25 10:02 Temperature 97.2 F L Pulse Rate 57 L Respiratory Rate 16 Blood Pressure 151/100 H Pulse Oximetry 98 Oxygen Delivery Room Air Exam Const: General: no acute distress and alert Orientation/consciousness: patient oriented x3 HENMT: Head: normocephalic and atraumatic Ears: hearing grossly normal bilaterally Face/Nose/Sinus: Normal nares present Mouth: Yes Normal oral and palatal mucosa present Eyes: Periorbital: periorbital findings normal Sclera: sclerae normal EOM: EOMs intact bilaterally Neck: Neck: normal visual inspection, no lymphadenopathy and trachea midline Chest: Chest palpation & inspection: normal inspection of the chest Resp: Effort & Inspection: normal respiratory effort Auscultation: clear to auscultation bilaterally Cardio: Jugular venous distension: no JVD Rate: regular rate Rhythm: regular rhythm Heart sounds: S1 normal heart sound present and S2 normal heart sound present Peripheral pulses: Peripheral pulses 2+ throughout GI: Inspection: normal to inspection GI Palp: Yes Soft to palpation, No Tenderness to palpation present (GI), No Guarding due to palpation present (GI) and No Rebound tenderness present Percussion: Yes normal to percussion Auscultation: normal bowel sounds : General: Yes no CVA tenderness Back/Spine/Pelvis: Back: no CVA tenderness Neuro: General: patient oriented x3, no focal motor deficits and CN's II-XI intact bilaterally Cognition (Neuro): normal cognition Speech: normal speech Motor exam (neuro): 5/5 motor strength present throughout Extrem: General: capillary refill normal and no clubbing, cyanosis or edema Assessment and Plan Assessment and plan (1) Colon cancer screening: Code(s): Z12.11 - Encounter for screening for malignant neoplasm of colon Status: Acute Assessment and Plan: I have recommended colonoscopy. I have discussed the procedure, risks, benefits, and alternatives. Questions were answered. Patient is agreeable to proceed.
--- NOTE | 2025-07-07 11:36 | S_PTH ---
PATIENT: Diogenes Mcelroy LOC: [facility] U#:[id number] AGE/SX: 75/M ROOM: RE07/07/[address]: Rajiv Byrnes DO : 1950 BED: DIS: 07/07/2025 SPEC #: [id number] RECD: 07/07/25 12:49 STATUS: ARTURO REQ #: [id number] NICK: 07/07/25 11:[address]: Rajiv Byrnes DEPT: [facility] Surgical RECD BY: Khalif Jimenez Tissues: A - Colon Polypectomy Procedures: Hematoxylin and Eosin Stain Gross and Microscopic Level 4
[2025-07-07 11:39] VITALS: BP 100/64; PULSE 57; RESP 10; O2SAT 94
[2025-07-07 11:49] VITALS: BP 97/63; PULSE 54; RESP 10; O2SAT 96
[2025-07-07 11:59] VITALS: BP 118/76; PULSE 67; RESP 12; O2SAT 98
== END 2025-07-07 12:20 | disposition home or self-care (01) ==
PROVIDERS: Visit Provider Surgery
PROC: 0DJD8ZZ Inspection of Lower Intestinal Tract, Via Natural or Artificial Opening Endoscopic (ICD-10-PCS; CPT 45378; principal; 2025-07-07 11:00)
DX: Z12.11 Encounter for screening for malignant neoplasm of colon (principal); K63.5 Polyp of colon; K57.30 Diverticulosis of large intestine without perforation or abscess without bleeding; Z87.891 Personal history of nicotine dependence
CPT/HCPCS: 45380; 88305; J2003; J2704; J7120